=== PATIENT | female | born 1950 | race Caucasian/White ===

== ENCOUNTER → 2016-10-18 | Outpatient (CLI) | payer BC ==
[~2016-10-18] MED LIST: MULT-506 PO
--- NOTE | 2016-10-19 09:07 | MAMMOGRAPHY REPORT ---
BILATERAL DIGITAL SCREENING MAMMOGRAM WITH CAD: 10/18/2016 CLINICAL HISTORY: Routine screening. Patient has no complaints. TECHNIQUE: Current study was also evaluated with a Computer Aided Detection (CAD) system. Bilateral CC and MLO views were obtained. COMPARISON: Comparison is made to exams dated: 04/27/2015 mammogram, 11/26/2013 mammogram, 10/29/2012 m ammogram, 10/26/2011 mammogram, 10/27/2010 mammogram, and 10/27/2010 ultrasound - [facility]. BREAST COMPOSITION: The tissue of both breasts is almost entirely fatty. FINDINGS: No suspicious masses, calcifications, or areas of architectural distortion are noted in ei ther breast. There has been no significant interval change compared to prior exams. IMPRESSION: ACR BI-RADS CATEGORY 1: NEGATIVE There is no mammographic evidence of malignancy. A 1 year screening mammogram is recommended. The pa tient will receive written notification of the results. Approximately 10% of breast cancers are not detected with mammography. A negative mammographic report should not delay biopsy if a clinically suggestive mass is present. Karlee Lozano M.D. ah/:10/18/2016 15:44:50 Dispatcher Service Chief: Francia Lundberg, [facility] letter sent: Normal 1/2 BI-RADS Code: ACR BI-RADS Category 1: Negative
== END | disposition home or self-care (01) ==
LOC: C.MAMM 14:10
PROVIDERS: ATTEND Family Medicine
DX: Z12.31 Encounter for screening mammogram for malignant neoplasm of breast (principal)

== ENCOUNTER 2022-04-20 09:34 | Inpatient (IN) ==
[2022-04-20] MEDS ORDERED: ONDANSETRON INJ 2 MG/ML 2 ML VIAL IV STA (09:56)
[2022-04-20] MEDS ORDERED: MoRPHine SULFATE 4 MG/ML 1 ML CARP\\VIAL IV STA (09:56)
--- NOTE | 2022-04-20 09:58 | Emergency Department Note ---
Impression & Plan Trimalleolar fracture of left ankle, Fall, HTN (hypertension), Acute ankle pain ED Provider Note NAME: RAFAEL ANAYA AGE: 71 SEX: F : 1950 ARRIVES VIA: Ambulance INFORMANT: Patient, ED PROVIDER(S): Arturo Bob MD Chief Complaint: Fall, ankle pain HPI: Patient presents for the patient sustained a fall with associated ankle pain that occurred just prior to arrival. The patient states that she slipped on some ice and inverted her left ankle. The patient denies any head strike or additional trauma. Patient denies any chest pain shortness of breath nausea or vomiting. Patient does complain of ankle that is sharp and localized to the left ankle. The patient has followed with prior orthopedics in the past but this has been in [place]. Patient denies any head strike or LOC. The patient does not take any blood thinning medications. The patient denies any additional symptoms. The patient does not take blood thinners and has no numbness tingling or focal weakness. Patient does have decreased range of motion secondary to pain. No pain medication given prior to arrival. MDM: Patient was seen due to concern for fall and ankle fracture. The patient did have skin tenting so the decision was made to emergently reduce the patient's likely ankle fracture dislocation. This is likely unstable as this would seem to recur with regard to the dislocation even after reduction. Splint was applied which did help maintain the patient's inline and does not appear to be overtly dislocated. Patient does not have a palpable pulse and I did attempt to Doppler this as well was unable to have an obvious pulse I did immediately consult with orthopedics. I did speak with Travis Laboy PA-C as well as Dr. Stearns. The patient did have improvement with her pain status post reduction. The patient's ankle was maintained with a gel splint at this time. Blood work was obtained along with ankle x-rays. The patient was ordered for morphine and 4 of Zofran. Blood work shows normal white count H&H and platelet count. Kidney function is unremarkable. Patient's plain films do show that the patient is still dislocated. Orthopedics did attempt to reduce this but was unable to do so so decision was made to sedate the patient or help facilitate the reduction patient would eventually be taken to the OR. The reduction was considered emergent given the patient's unstable fracture and dislocation. There is also concern for tenting of the skin per Ortho. Satisfactory reduction per Ortho. I did speak the on-call medicine service 1 JOSE LUIS Conley and the patient was admitted by Dr. Linares. ROS: See HPI for pertinent positives and negatives. A total of 10 systems were reviewed and otherwise negative. Past medical history: See below Surgical history: See below Social history: See below Physical Exam: GENERAL: NAD, wearing a mask, non-toxic. EYE EXAM: Normal conjunctiva. PERRL, no anisocoria and EOM's grossly intact w/o pain. NECK: Supple, no nuchal rigidity, no adenopathy, non-tender. No signs of meningismus. FROM of the neck with good chin to chest and neck extension. No stridor. LUNGS: Clear to auscultation. Normal chest wall mechanics. HEART: NSR, no MRG. ABDOMEN: Abdomen soft, non-tender, normo-active bowel sounds, no masses, no rebound or guarding. BACK: No CVA TTP. SKIN: No rashes and no bruising. UPPER EXTREMITIES: Upper extremities are grossly normal. No TTP or obvious deformity. LOWER EXTREMITIES: Obvious deformity of the left ankle with skin tenting over the medial malleolus, left ankle everted. Sensate and does move toes. No obvious DP pulse. NEURO EXAM: A&O x3, cranial nerves II-XII grossly intact, normal speech, moves all 4 extremities. Differential diagnoses: Fracture, subluxation, dislocation, contusion, ligamentous injury, neurovascular, compartment syndrome, rhabdomyolysis, as well as other pathologies. Course: Patient was seen and evaluated the bedside. Full history physical exam was performed. EKG interpreted by me A paced rhythm, rate of 60 normal intervals normal axis T wave version lead III noncontiguous leads Imaging Studies: See Below Cardiac monitoring: An order was placed for continuous cardiac monitoring. The monitor shows a rate of 65 with slight rhythm. Procedures: Left ankle fracture dislocation reduction procedure performed by Dr. Bob Indication: Fracture dislocation Verbal consent obtained. Risks and benefits were explained with the usual customary discussion. A time out was taken. Sensate to tibialis DP tibialis and SP nerves but no obvious DP pulse, is able to move the toes. The left ankle was reduced but quickly fell out of place likely indicative of an unstable ankle and possible trimalleolar fracture. This was attempted a second time with a more stable reduction but the patient may still be subluxed or dislocated but does have improved positioning and pain. Patient is sensate to tibialis DP and SP nerves but no obvious DP pulse. The patient is able to move the toes. The patient had significant pain relief and tolerated the procedure well. Procedural Sedation performed by Dr. Bob Indication left ankle fracture dislocation Total time: 15 minutes. Written consent was obtained after the risks and benefits were explained to the patient as well as the patient's , including, but not limited to aspiration, allergic reaction, breathing difficulties, cardiac complications, vomiting, pain, event recall, bleeding, and/or infection. Pre-sedation examination and paperwork completed. The patient was on 100% oxygen via NRB prior to the procedure. Continous end tidal CO2 monitoring, pulse oximetry, and cardiac monitoring were utilized. Suction, airway equipment, medications, respiratory equipment, and appropriate personnel were prepared prior to the initiation of the procedure. A time out was taken. Sedation was achieved utilizing 20 mg of propofol. After I observed the patient had reached the appropriate level of sedation the main procedure was performed without complication. Sedation was discontinued and the monitoring continued. The patient recovered quickly from the effects of the medication without complication or adverse event. Past Med/Surg History Medical History Bakers cyst History of COVID-19 History of RSV infection HLD (hyperlipidemia) HTN (hypertension) Hypothyroidism Prediabetes SSS (sick sinus syndrome) Stage 3b chronic kidney disease (CKD) Surgical History H/O total hysterectomy Status post biventricular pacemaker Family History Other Diabetes Dyslipidemia Heart disease Hypertension Social History Smoking Status: Never smoker Tobacco Type: Cigarettes Hx Alcohol Use: No Hx Substance Use: No Preferred Language: Norwegian marital status: Current Living Situation: Spouse Feels Safe at Home: Yes Allergies Allergies Allergy/AdvReac Type Severity Reaction Status Date / Time cephalexin [From Keflex] Allergy Hives Verified 04/20/22 11:44 Penicillins Allergy hives Verified 04/20/22 11:43 Home Meds Home Medications Medication Instructions Recorded Confirmed acetaminophen 500 mg tablet 1,000 mg PO Q8 PRN Pain 04/20/22 04/20/22 (Tylenol Extra Strength) albuterol sulfate 90 mcg/actuation 2 puff inhalation Q4 PRN Shortness 04/20/22 04/20/22 aerosol inhaler Of Breath Or Wheezing aspirin 81 mg tablet,delayed 81 mg PO DAILY 04/20/22 04/20/22 release atorvastatin 10 mg tablet 10 mg PO QAM 04/20/22 04/20/22 fluticasone furoate 100 1 inh inhalation DAILY 04/20/22 04/20/22 mcg/actuation blister powder for inhalation (Arnuity Ellipta) furosemide 20 mg tablet 20 mg PO Q OTHER DAY 04/20/22 04/20/22 gabapentin 100 mg capsule 100 mg PO HS 04/20/22 04/20/22 levothyroxine 50 mcg tablet 50 mcg PO DAILY 04/20/22 04/20/22 loratadine 10 mg tablet (Claritin) 10 mg PO DAILY 04/20/22 04/20/22 losartan 100 mg tablet 100 mg PO DAILY 04/20/22 04/20/22 multivitamin 1 tab PO DAILY 04/20/22 04/20/22 promethazine-DM 6.25 mg-15 mg/5 mL 5 ml PO DIRECTED PRN Cough 04/20/22 04/20/22 oral syrup Results & Data (ED) Vital Signs Vital Signs - 24 hr 04/20/22 09:53 04/20/22 09:53 04/20/22 10:28 Temperature 36.8 C Temperature Source Oral Pulse Rate 62 Pulse Rate [Apical] 62 86 Pulse Rate from SpO2 Sensor Pulse Rhythm [Apical] Pulse Strength [Apical] Respiratory Rate 18 18 20 Respiratory Effort / Characteristics Respiratory Depth Respiratory Pattern Blood Pressure 153/85 H Blood Pressure [Left Arm] 153/85 H 170/72 H Blood Pressure Mean 107 Blood Pressure Mean [Left Arm] 107 104 Blood Pressure Position [Left Arm] Lying Pulse Oximetry 100 100 96 Oxygen Delivery Method Room Air Sepsis Recent Fever Within 48 Hours No Sepsis New/Unexplained Change in Mental Status No Sepsis Action Taken by Nursing No Action Required End-Tidal CO2 04/20/22 12:40 04/20/22 11:48 04/20/22 11:50 Temperature 36.4 C L Temperature Source Oral Pulse Rate 66 Pulse Rate [Apical] 61 Pulse Rate from SpO2 Sensor 65 Pulse Rhythm [Apical] Regular Pulse Strength [Apical] Normal Respiratory Rate 16 11 L Respiratory Effort / Characteristics Non-Labored Spontaneous Respiratory Depth Normal Respiratory Pattern Regular Blood Pressure 137/64 Blood Pressure [Left Arm] 118/63 Blood Pressure Mean 88 Blood Pressure Mean [Left Arm] 81 Blood Pressure Position [Left Arm] Sitting Pulse Oximetry 94 99 Oxygen Delivery Method Room Air Sepsis Recent Fever Within 48 Hours Sepsis New/Unexplained Change in Mental Status Sepsis Action Taken by Nursing End-Tidal CO2 35 04/20/22 11:50 04/20/22 11:55 04/20/22 11:55 Temperature Temperature Source Pulse Rate 63 65 Pulse Rate [Apical] Pulse Rate from SpO2 Sensor 63 64 Pulse Rhythm [Apical] Pulse Strength [Apical] Respiratory Rate 10 L 13 Respiratory Effort / Characteristics Respiratory Depth Respiratory Pattern Blood Pressure 131/77 Blood Pressure [Left Arm] Blood Pressure Mean 95 Blood Pressure Mean [Left Arm] Blood Pressure Position [Left Arm] Pulse Oximetry 99 100 Oxygen Delivery Method Sepsis Recent Fever Within 48 Hours Sepsis New/Unexplained Change in Mental Status Sepsis Action Taken by Nursing End-Tidal CO2 34 34 04/20/22 12:00 04/20/22 12:00 04/20/22 12:05 Temperature Temperature Source Pulse Rate 65 64 Pulse Rate [Apical] Pulse Rate from SpO2 Sensor 64 64 Pulse Rhythm [Apical] Pulse Strength [Apical] Respiratory Rate 11 L 13 Respiratory Effort / Characteristics Respiratory Depth Respiratory Pattern Blood Pressure 140/76 Blood Pressure [Left Arm] Blood Pressure Mean 97 Blood Pressure Mean [Left Arm] Blood Pressure Position [Left Arm] Pulse Oximetry 100 95 Oxygen Delivery Method Sepsis Recent Fever Within 48 Hours Sepsis New/Unexplained Change in Mental Status Sepsis Action Taken by Nursing End-Tidal CO2 24 35 04/20/22 12:05 04/20/22 12:10 04/20/22 12:10 Temperature Temperature Source Pulse Rate 65 Pulse Rate [Apical] Pulse Rate from SpO2 Sensor 65 Pulse Rhythm [Apical] Pulse Strength [Apical] Respiratory Rate 13 Respiratory Effort / Characteristics Respiratory Depth Respiratory Pattern Blood Pressure 127/66 128/67 Blood Pressure [Left Arm] Blood Pressure Mean 86 87 Blood Pressure Mean [Left Arm] Blood Pressure Position [Left Arm] Pulse Oximetry 95 Oxygen Delivery Method Sepsis Recent Fever Within 48 Hours Sepsis New/Unexplained Change in Mental Status Sepsis Action Taken by Nursing End-Tidal CO2 35 04/20/22 12:15 04/20/22 12:15 04/20/22 12:20 Temperature Temperature Source Pulse Rate 63 64 Pulse Rate [Apical] Pulse Rate from SpO2 Sensor 62 Pulse Rhythm [Apical] Pulse Strength [Apical] Respiratory Rate 10 L 7 L Respiratory Effort / Characteristics Respiratory Depth Respiratory Pattern Blood Pressure 127/67 Blood Pressure [Left Arm] Blood Pressure Mean 87 Blood Pressure Mean [Left Arm] Blood Pressure Position [Left Arm] Pulse Oximetry 92 Oxygen Delivery Method Sepsis Recent Fever Within 48 Hours Sepsis New/Unexplained Change in Mental Status Sepsis Action Taken by Nursing End-Tidal CO2 36 35 04/20/22 12:30 04/20/22 12:40 04/20/22 12:55 Temperature Temperature Source Pulse Rate Pulse Rate [Apical] 60 Pulse Rate from SpO2 Sensor Pulse Rhythm [Apical] Regular Pulse Strength [Apical] Normal Respiratory Rate 0 L 0 L 16 Respiratory Effort / Characteristics Non-Labored Spontaneous Respiratory Depth Normal Respiratory Pattern Regular Blood Pressure Blood Pressure [Left Arm] 117/58 L Blood Pressure Mean Blood Pressure Mean [Left Arm] 77 Blood Pressure Position [Left Arm] Semi-fowlers Pulse Oximetry 95 Oxygen Delivery Method Room Air Sepsis Recent Fever Within 48 Hours Sepsis New/Unexplained Change in Mental Status Sepsis Action Taken by Nursing End-Tidal CO2 04/20/22 13:05 Temperature Temperature Source Pulse Rate Pulse Rate [Apical] 60 Pulse Rate from SpO2 Sensor Pulse Rhythm [Apical] Regular Pulse Strength [Apical] Normal Respiratory Rate 16 Respiratory Effort / Characteristics Non-Labored Spontaneous Respiratory Depth Normal Respiratory Pattern Regular Blood Pressure Blood Pressure [Left Arm] 127/65 Blood Pressure Mean Blood Pressure Mean [Left Arm] 85 Blood Pressure Position [Left Arm] Semi-fowlers Pulse Oximetry 95 Oxygen Delivery Method Room Air Sepsis Recent Fever Within 48 Hours Sepsis New/Unexplained Change in Mental Status Sepsis Action Taken by Nursing End-Tidal CO2 Home Medications Current Medication List: was personally reviewed by me Laboratory Data Attestation: I reviewed the patient's lab results. Result diagrams: 04/20/22 10:07 04/20/22 10:07 Lab Results 04/20/22 04/20/22 04/20/22 Range/Units 10:07 10:07 10:09 WBC 5.39 (4.8-10.8) K/ul RBC 4.39 (3.93-5.22) M/uL Hgb 13.3 (12.0-16.0) g/dl Hct 41.9 (34.1-44.9) % MCV 95.4 (80.0-100.0) fL MCH 30.3 (25.0-34.0) pg MCHC 31.7 L (32.0-36.0) g/dL RDW Std Deviation 52.6 H (36.4-46.3) fL RDW Coeff of Mino 15.0 H (11.5-14.5) % Plt Count 160 (130-400) K/uL MPV 9.2 L (9.4-12.3) fL Immature Gran % (Auto) 0.2 % Neut % (Auto) 70.6 % Lymph % (Auto) 18.6 % Nobles % (Auto) 7.8 % Eos % (Auto) 2.4 % Baso % (Auto) 0.4 % Neut # (Auto) 3.81 (1.4-6.5) K/uL Lymph # (Auto) 1.00 L (1.2-3.4) K/uL Nobles # (Auto) 0.42 (0.24-0.82) K/uL Eos # (Auto) 0.13 (0-0.50) K/uL Baso # (Auto) 0.02 (0-0.2) K/uL Immature Gran # (Auto) 0.01 (0.00-0.02) K/uL Sodium 142 (136-145) mmol/L Potassium 4.0 (3.5-5.1) mmol/L Chloride 109 H (98-107) mmol/L Carbon Dioxide 26 (21-32) mmol/L Anion Gap 7 (3-11) BUN 25 H (6-23) mg/dl Creatinine 1.08 (0.6-1.2) mg/dl Est Cr Clr Drug Dosing 58.3 ml/min Est GFR ( Amer) 60.2 ml/min Est GFR (Non-Af Amer) 52.0 ml/min BUN/Creatinine Ratio 23.1 H (10-20) Glucose 112 H (70-99(Fasting)) mg/dl Calcium 9.5 (8.5-10.1) mg/dl Total Bilirubin 0.4 (0.2-1.0) mg/dl AST 25 (13-39) U/L ALT 21 (7-52) U/L Alkaline Phosphatase 74 (34-104) U/L Total Protein 7.4 (6.0-8.3) gm/dl Albumin 4.4 (3.4-5.0) gm/dl Globulin 3.0 (2.5-4.0) gm/dl Albumin/Globulin Ratio 1.5 (0.9-2) Urine Color Urine Appearance (Clear) Urine pH (4.5-7.5) Ur Specific [place] (1.000-1.030) Urine Protein (Negative) Urine Glucose (UA) (Negative) Urine Ketones (Negative) Urine Blood (Negative) Urine Nitrite (Negative) Urine Bilirubin (Negative) Urine Urobilinogen (Negative) Ur Leukocyte Esterase (Negative) SARS-CoV-2, RNA, NAAT NEGATIVE (NEGATIVE) 04/20/22 Range/Units 10:23 WBC (4.8-10.8) K/ul RBC (3.93-5.22) M/uL Hgb (12.0-16.0) g/dl Hct (34.1-44.9) % MCV (80.0-100.0) fL MCH (25.0-34.0) pg MCHC (32.0-36.0) g/dL RDW Std Deviation (36.4-46.3) fL RDW Coeff of Mino (11.5-14.5) % Plt Count (130-400) K/uL MPV (9.4-12.3) fL Immature Gran % (Auto) % Neut % (Auto) % Lymph % (Auto) % Nobles % (Auto) % Eos % (Auto) % Baso % (Auto) % Neut # (Auto) (1.4-6.5) K/uL Lymph # (Auto) (1.2-3.4) K/uL [place]les # (Auto) (0.24-0.82) K/uL Eos # (Auto) (0-0.50) K/uL Baso # (Auto) (0-0.2) K/uL Immature Gran # (Auto) (0.00-0.02) K/uL Sodium (136-145) mmol/L Potassium (3.5-5.1) mmol/L Chloride (98-107) mmol/L Carbon Dioxide (21-32) mmol/L Anion Gap (3-11) BUN (6-23) mg/dl Creatinine (0.6-1.2) mg/dl Est Cr Clr Drug Dosing ml/min Est GFR ( Amer) ml/min Est GFR (Non-Af Amer) ml/min BUN/Creatinine Ratio (10-20) Glucose (70-99(Fasting)) mg/dl Calcium (8.5-10.1) mg/dl Total Bilirubin (0.2-1.0) mg/dl AST (13-39) U/L ALT (7-52) U/L Alkaline Phosphatase (34-104) U/L Total Protein (6.0-8.3) gm/dl Albumin (3.4-5.0) gm/dl Globulin (2.5-4.0) gm/dl Albumin/Globulin Ratio (0.9-2) Urine Color Yellow Urine Appearance Clear (Clear) Urine pH 5.0 (4.5-7.5) Ur Specific [place] 1.007 (1.000-1.030) Urine Protein Negative (Negative) Urine Glucose (UA) Negative (Negative) Urine Ketones Negative (Negative) Urine Blood Negative (Negative) Urine Nitrite Negative (Negative) Urine Bilirubin Negative (Negative) Urine Urobilinogen Negative (Negative) Ur Leukocyte Esterase Negative (Negative) SARS-CoV-2, RNA, NAAT (NEGATIVE) Administered Medications Discontinued Medications Hydromorphone HCl (Hydromorphone Inj 0.5 Mg/0.5 Ml Syr) 0.5 mg IV NOW STA Stop: 04/20/22 11:11 Last Admin: 04/20/22 11:17 Dose: 0.5 mg Documented By: MODESTO Hydromorphone HCl (Hydromorphone Inj 0.5 Mg/0.5 Ml Syr) 0.5 mg IV NOW STA Stop: 04/20/22 11:51 Last Admin: 04/20/22 11:15 Dose: 0.5 mg Documented By: MODESTO Cefazolin Sodium (Ancef 2000mg) 2,000 mg in 15 mls @ 3.75 mls/min IV PREOP ONE; Protocol Stop: 04/20/22 12:46 Last Admin: 04/20/22 13:12 Dose: 3.75 mls/min Documented By: SEAN Morphine Sulfate (Morphine Sulfate 4 Mg/Ml 1 Ml Carp\Vial) 4 mg IV NOW STA Stop: 04/20/22 09:57 Last Admin: 04/20/22 10:12 Dose: 4 mg Documented By: STEPHANIE Ondansetron HCl (Ondansetron Inj 2 Mg/Ml 2 Ml Vial) 4 mg IV NOW STA Stop: 04/20/22 09:57 Last Admin: 04/20/22 10:12 Dose: 4 mg Documented By: STEPHANIE Propofol (Propofol Iv Emulsion 10 Mg/Ml 20 Ml Vial) Confirm Administered Dose 200 mg IV .STK-MED ONE Stop: 04/20/22 11:39 Last Admin: 04/20/22 12:05 Dose: Not Given Documented By: RAFAEL Propofol (Propofol Iv Emulsion 10 Mg/Ml 20 Ml Vial) 50 mg IV NOW STA Stop: 04/20/22 11:39 Last Admin: 04/20/22 11:47 Dose: 20 mg Documented By: RAFAEL Co-signed By: SOCORRO Imaging Data Radiologist's Impression: Ankle X-Ray 04/20/22 09:56 XR ankle LT min 3V routine HISTORY: 71 years-old Female likely trimall s/p reduction in splint acute left ankle pain status post trauma COMPARISON: None TECHNIQUE: 3 views of the left ankle FINDINGS: Acute medial malleolar fracture demonstrates 8 mm lateral displacement. Acute obliquely oriented longitudinal fracture of the distal fibular metadiaphysis demonstrates posterior displacement measuring up to approximately 1.3 cm. Probable acute fracture of the posterior malleolus. Dislocation of the tibiotalar joint. The distal tibia is displaced 2.3 cm in relation to the talar dome. Moderate soft tissue swelling. Vascular calcifications. Demineralized appearance of the bones with at least mild osteoarthritis. IMPRESSION: Acute fracture dislocation of the ankle as above. ACT 112: Negative or not required by law. The above report was generated using voice recognition software. It may contain grammatical, syntax or spelling errors. Electronically signed by: Bruce Shea M.D. 04/20/2022 10:49 AM Ankle X-Ray 04/20/22 10:42 XR ankle LT min 3V routine CLINICAL HISTORY: post reduction w/ Bader COMPARISON: Left ankle radiographs April 20, 2022 at 10:21 AM. FINDINGS: Overlying cast is noted. Tibiotalar dislocation is again noted. Alignment of the distal left tibial and fibular fractures is similar to prior exam. Findings detailed is decreased given overlying cast. IMPRESSION: No significant change in alignment of the left ankle f racture/dislocation. ACT 112: Negative or not required by law. Electronically signed by: Charan Cruz M.D. 04/20/2022 11:18 AM Ankle X-Ray 04/20/22 11:16 XR ankle LT 2V CLINICAL HISTORY: Postreduction. Left ankle fracture. COMPARISON STUDY: Left ankle 04/20/2022. FINDINGS: Overlying splint material obscures fine bony detail. There is again noted a displaced trimalleolar left ankle fracture. There is slight progression of the lateral displacement/dislocation compared to the prior examination. The medial malleolus fracture demonstrates up to 10 mm of lateral displacement, previously measuring 7 mm. There is 12 mm of lateral displacement of the talus in relation to the sternal tibia. Diffuse soft tissue swelling. IMPRESSION: Slight progression of the lateral displacement/dislocation of the left ankle trimalleolar fracture compared to the prior study. ACT 112: Negative or not required by law. Electronically signed by: Man Alvarenga M.D. 04/20/2022 12:02 PM Chest X-Ray 04/20/22 11:58 XR chest 1V portable HISTORY: Left ankle fracture. preop COMPARISON: None. FINDINGS: There are low lung volumes. A few small left basilar linear densities favor subsegmental atelectasis or scarring. Otherwise, the lungs are clear. No evidence for pulmonary edema. There is a small hiatus hernia. Prior cholecystectomy. Left-sided dual-chamber pacemaker. No pleural effusions. No pneumothorax. IMPRESSION: A few small left basilar linear densities favoring subsegmental atelectasis or scarring. Otherwise, no acute process within the chest. ACT 112: Negative or not required by law. Electronically signed by: Man Alvarenga M.D. 04/20/2022 12:34 PM Discharge Plan Visit Data Chief Complaint: Fall Stated Complaint: FALL, ANKLE FX ED Provider: Arturo Bob Discharge Problem: Trimalleolar fracture of left ankle, Fall, HTN (hypertension), Acute ankle pain Patient Disposition: Admitted As Inpatient Discharge Instructions Interventions: ED Discharge Assessment Last Done: 12/22/22 12:49 : Trimalleolar fracture of left ankle Qualifiers: Encounter type: initial encounter Fracture type: closed Qualified Code(s): S82.852A - Displaced trimalleolar fracture of left lower leg, initial encounter for closed fracture Fall Qualifiers: Encounter type: initial encounter Qualified Code(s): W19.XXXA - Unspecified fall, initial encounter HTN (hypertension) Qualifiers: Hypertension type: unspecified Qualified Code(s): I10 - Essential (primary) hypertension Acute ankle pain Qualifiers: Laterality: left Qualified Code(s): M25.572 - Pain in left ankle and joints of left foot
[2022-04-20 10:21] LABS: Basophils # (auto) 0.02 K/uL (0-0.2); Basophils % (auto) 0.4 %; Eosinophils # (auto) 0.13 K/uL (0-0.50); Eosinophils % (auto) 2.4 %; Hematocrit (blood only) 41.9 % (34.1-44.9); Hemoglobin 13.3 g/dl (12.0-16.0); Immature Granulocytes # (auto) 0.01 K/uL (0.00-0.02); Immature Granulocytes % (auto) 0.2 %; Lymphocytes % (auto) 18.6 %; Mean Corpuscular Hemoglobin 30.3 pg (25.0-34.0); Mean Corpuscular Hgb Conc 31.7 g/dL (32.0-36.0); Mean Corpuscular Volume 95.4 fL (80.0-100.0); Mean Platelet Volume 9.2 fL (9.4-12.3); Monocytes # (auto) 0.42 K/uL (0.24-0.82); Monocytes % (auto) 7.8 %; Neutrophils # (auto) 3.81 K/uL (1.4-6.5); Neutrophils % (auto) 70.6 %; Platelet Count 160 K/uL (130-400); RDW Standard Deviation 52.6 fL (36.4-46.3); Red Blood Count 4.39 M/uL (3.93-5.22); White Blood Count 5.39 K/ul (4.8-10.8)
[2022-04-20 10:35] LABS: Appearance Urine Clear (Clear); Bilirubin Urine Negative (Negative); Blood Urine Negative (Negative); Color Urine Yellow; Glucose Urine UA Negative (Negative); Ketones Urine Negative (Negative); Leukocyte Esterase Urine Negative (Negative); Nitrite Urine Negative (Negative); Protein Urine Negative (Negative); Specific Gravity Urine 1.007 (1.000-1.030); Urobilinogen Urine Negative (Negative)
--- NOTE | 2022-04-20 10:51 | XRay Report ---
XR ankle LT min 3V routine HISTORY: 71 years-old Female likely trimall s/p reduction in splint acute left ankle pain status pos t trauma COMPARISON: None TECHNIQUE: 3 views of the left ankle FINDINGS: Acute medial malleolar fracture demonstrates 8 mm lateral displacement. Acute obliquely oriented long itudinal fracture of the distal fibular metadiaphysis demonstrates posterior displacement measuring u p to approximately 1.3 cm. Probable acute fracture of the posterior malleolus. Dislocation of the tib iotalar joint. The distal tibia is displaced 2.3 cm in relation to the talar dome. Moderate soft tiss ue swelling. Vascular calcifications. Demineralized appearance of the bones with at least mild osteoa rthritis. IMPRESSION: Acute fracture dislocation of the ankle as above. ACT 112: Negative or not required by law. The above report was generated using voice recognition software. It may contain grammatical, syntax o r spelling errors. Electronically signed by: Bruce Shea M.D. 04/20/2022 10:49 AM
[2022-04-20 10:54] LABS: Albumin Globulin Ratio 1.5 (0.9-2); Albumin Level 4.4 gm/dl (3.4-5.0); BUN Creatinine Ratio 23.1 (10-20); Bilirubin,Total 0.4 mg/dl (0.2-1.0); Calcium 9.5 mg/dl (8.5-10.1); Creatinine Clr Calc Pharmacy 58.3 ml/min; Est GFR (African American) 60.2 ml/min; Total Protein 7.4 gm/dl (6.0-8.3)
[2022-04-20] MEDS ORDERED: HYDROmorphone INJ 0.5 MG/0.5 ML SYR IV STA ×2 (11:10→11:50)
--- NOTE | 2022-04-20 11:21 | XRay Report ---
XR ankle LT min 3V routine CLINICAL HISTORY: post reduction w/ Bader COMPARISON: Left ankle radiographs April 20, 2022 at 10:21 AM. FINDINGS: Overlying cast is noted. Tibiotalar dislocation is again noted. Alignment of the distal le ft tibial and fibular fractures is similar to prior exam. Findings detailed is decreased given overly ing cast. IMPRESSION: No significant change in alignment of the left ankle fracture/dislocation. ACT 112: Negative or not required by law. Electronically signed by: Charan Cruz M.D. 04/20/2022 11:18 AM
--- NOTE | 2022-04-20 11:23 | History & Physical Report ---
Date of Service April 20, 2022 Assessment & Plan (1) Fall: (2) Trimalleolar fracture of left ankle: Plan: - Admit to med surg with tele - Pt is currently sedated, ankle set was attempted in the ER but not obtainable so going to the OR emergently this afternoon. - Ortho consulted - Preop Ancef - Pain control with Tylenol [id number], oxycodone 5 mg as needed, IV morphine for breakthrough pain - Bowel regimen with MiraLAX and Dulcolax ordered - PT/OT consults - CXR reviewed and clear (3) SSS (sick sinus syndrome): (4) Status post biventricular pacemaker: (5) HTN (hypertension): (6) HLD (hyperlipidemia): Plan: - Continue on baby aspirin, hold Lasix and losartan for now with BP being 118/63 - Can resume per the day team - Cont statin therapy HS - EKG reviewed showing atrial paced rhythm, no acute changes (7) Prediabetes: Plan: - Check A1C with am labs, glucose is 112 on admission, monitor and order ISS if needed. Pt is not on any home medications - Diet and exercise to be encouraged post-op (8) Stage 3b chronic kidney disease (CKD): Plan: - Holding losartan and lasix as above, Cr. is currently 1.08, BUN 25 - Follow with am labs (9) Hypothyroidism: Plan: - Cont levothyroxine BB DVT ppx: - teds, scds CODE: Full code Dispo: From home, likely to remain in the hospital x 1-2 days Discussion was held with the patient's , Lito at bedside, all his que stions and concerns were addressed. Plan for OR today. History of Present Illness Chief Complaint: Fall Primary Care Provider: Miguel Miranda MD This is a 71 yo F with PMhx of SSS status post pacemaker insertion in October 2020, HTN, HLD, diastolic dysfunction, prediabetes, CKD stage IIIb, and hypothyroidism who slipped and fell on ice earlier today. Patient's is at bedside . This morning his stepped outside of her vehicle onto some ice, slipped and fell on top of her ankle. This was immediately followed by severe pain. The patient is currently sedated and unconscious therefore unable to obtain history or ROS from her. Patient has underwent attempt to reduce/that the ankle however was unable to be done in the ER. ER physician had difficulty finding palpable pulse in the left foot, bedside Doppler could not identify dorsalis pedis pulse, and orthopedic consult was placed urgently and they are planning to take the patient to the OR this afternoon. Allergies Allergy/AdvReac Type Severity Reaction Status Date / Time cephalexin [From Keflex] Allergy Hives Verified 04/20/22 11:44 Penicillins Allergy hives Verified 04/20/22 11:43 Home Medications Medication Instructions Recorded Confirmed Type acetaminophen 500 mg tablet 1,000 mg PO Q8 PRN Pain 04/20/22 04/20/22 History (Tylenol Extra Strength) albuterol sulfate 90 mcg/actuation 2 puff inhalation Q4 PRN Shortness 04/20/22 04/20/22 History aerosol inhaler Of Breath Or Wheezing aspirin 81 mg tablet,delayed 81 mg PO DAILY 04/20/22 04/20/22 History release atorvastatin 10 mg tablet 10 mg PO QAM 04/20/22 04/20/22 History fluticasone furoate 100 1 inh inhalation DAILY 04/20/22 04/20/22 History mcg/actuation blister powder for inhalation (Arnuity Ellipta) furosemide 20 mg tablet 20 mg PO Q OTHER DAY 04/20/22 04/20/22 History gabapentin 100 mg capsule 100 mg PO HS 04/20/22 04/20/22 History levothyroxine 50 mcg tablet 50 mcg PO DAILY 04/20/22 04/20/22 History loratadine 10 mg tablet (Claritin) 10 mg PO DAILY 04/20/22 04/20/22 History losartan 100 mg tablet 100 mg PO DAILY 04/20/22 04/20/22 History multivitamin 1 tab PO DAILY 04/20/22 04/20/22 History promethazine-DM 6.25 mg-15 mg/5 mL 5 ml PO DIRECTED PRN Cough 04/20/22 04/20/22 History oral syrup Past Med/Surg History Medical History Bakers cyst History of COVID-19 History of RSV infection HLD (hyperlipidemia) HTN (hypertension) Hypothyroidism Prediabetes SSS (sick sinus syndrome) Stage 3b chronic kidney disease (CKD) Surgical History H/O total hysterectomy Status post biventricular pacemaker Family History Other Diabetes Dyslipidemia Heart disease Hypertension Social History Smoking Status: Never smoker Tobacco Type: Cigarettes Hx Alcohol Use: No Hx Substance Use: No Preferred Language: Guyanese Communication Ability: Effective Senior Government Program Analyst Required: No Beliefs That Will Affect Care: None marital status: Current Living Situation: Spouse Other Information That Helps Us Care for You: No Feels Safe at Home: Yes Safety Concerns: Feels Safe At This Time Review of Systems Review of Systems: Unobtainable due to cognitive status (Sedated for procedure) Physical Exam Physical Exam: General: + sedated, no apparent distress, + Obese with BMI of 43.1 Head: Normocephalic, atraumatic ENT: PERRL, EOMI, no pharyngeal exudate, mucous membranes moist Chest: Clear to auscultation, on room air with nasal oximetry monitor in place, no adventitious breath sounds Cardiac: Regular rate and rhythm, no murmur, no JVD, good capillary refill Abdominal: NABS x 4 quadrants, soft, nondistended, nontender to palpation, no rebound or guarding Extremities: Left leg set and wrapped, otherwise normal inspection, no peripheral edema or erythema, calfs nontender to palpation Psych: Normal mood and affect Neuro: AAO x 3, strength intact bilaterally and rated 5/5, no motor deficits, speech is clear, no peripheral sensory deficits Results & Data Results & Data ([facility]) Vital Signs (Past 12 Hours) Vital Signs Temp Pulse Pulse Resp BP BP Pulse Ox 04/20/22 10:28 86 20 170/72 H 96 04/20/22 09:53 62 18 153/85 H 100 04/20/22 09:53 36.8 C 62 18 153/85 H 100 O2 Del Method 04/20/22 10:28 Room Air 04/20/22 09:53 04/20/22 09:53 Laboratory Results 04/20/22 04/20/22 04/20/22 10:23 10:09 10:07 WBC RBC Hgb Hct MCV MCH MCHC RDW Std Deviation RDW Coeff of Mino Plt Count MPV Immature Gran % (Auto) Neut % (Auto) Lymph % (Auto) [place] % (Auto) Eos % (Auto) Baso % (Auto) Neut # (Auto) Lymph # (Auto) [place] # (Auto) Eos # (Auto) Baso # (Auto) Immature Gran # (Auto) Sodium 142 Potassium 4.0 Chloride 109 H Carbon Dioxide 26 Anion Gap 7 BUN 25 H Creatinine 1.08 Est Cr Clr Drug Dosing 58.3 Est GFR ( Amer) 60.2 Est GFR (Non-Af Amer) 52.0 BUN/Creatinine Ratio 23.1 H Glucose 112 H Calcium 9.5 Total Bilirubin 0.4 AST 25 ALT 21 Alkaline Phosphatase 74 Total Protein 7.4 Albumin 4.4 Globulin 3.0 Albumin/Globulin Ratio 1.5 Urine Color Yellow Urine Appearance Clear Urine pH 5.0 Ur Specific [place] 1.007 Urine Protein Negative Urine Glucose (UA) Negative Urine Ketones Negative Urine Blood Negative Urine Nitrite Negative Urine Bilirubin Negative Urine Urobilinogen Negative Ur Leukocyte Esterase Negative SARS-CoV-2, RNA, NAAT NEGATIVE 04/20/22 10:07 WBC 5.39 RBC 4.39 Hgb 13.3 Hct 41.9 MCV 95.4 MCH 30.3 MCHC 31.7 L RDW Std Deviation 52.6 H RDW Coeff of Mino 15.0 H Plt Count 160 MPV 9.2 L Immature Gran % (Auto) 0.2 Neut % (Auto) 70.6 Lymph % (Auto) 18.6 [place] % (Auto) 7.8 Eos % (Auto) 2.4 Baso % (Auto) 0.4 Neut # (Auto) 3.81 Lymph # (Auto) 1.00 L [place] # (Auto) 0.42 Eos # (Auto) 0.13 Baso # (Auto) 0.02 Immature Gran # (Auto) 0.01 Sodium Potassium Chloride Carbon Dioxide Anion Gap BUN Creatinine Est Cr Clr Drug Dosing Est GFR ( Amer) Est GFR (Non-Af Amer) BUN/Creatinine Ratio Glucose Calcium Total Bilirubin AST ALT Alkaline Phosphatase Total Protein Albumin Globulin Albumin/Globulin Ratio Urine Color Urine Appearance Urine pH Ur Specific [place] Urine Protein Urine Glucose (UA) Urine Ketones Urine Blood Urine Nitrite Urine Bilirubin Urine Urobilinogen Ur Leukocyte Esterase SARS-CoV-2, RNA, NAAT Diagnostic Findings Ankle X-Ray 04/20/22 09:56 XR ankle LT min 3V routine HISTORY: 71 years-old Female likely trimall s/p reduction in splint acute left ankle pain status post trauma COMPARISON: None TECHNIQUE: 3 views of the left ankle FINDINGS: Acute medial malleolar fracture demonstrates 8 mm lateral displacement. Acute obliquely oriented longitudinal fracture of the distal fibular metadiaphysis demonstrates posterior displacement measuring up to approximately 1.3 cm. Probable acute fracture of the posterior malleolus. Dislocation of the tibiotalar joint. The distal tibia is displaced 2.3 cm in relation to the talar dome. Moderate soft tissue swelling. Vascular calcifications. Demineralized appearance of the bones with at least mild osteoarthritis. IMPRESSION: Acute fracture dislocation of the ankle as above. ACT 112: Negative or not required by law. The above report was generated using voice recognition software. It may contain grammatical, syntax or spelling errors. Electronically signed by: Bruce Shea M.D. 04/20/2022 10:49 AM Ankle X-Ray 04/20/22 10:42 XR ankle LT min 3V routine CLINICAL HISTORY: post reduction w/ Bader COMPARISON: Left ankle radiographs April 20, 2022 at 10:21 AM. FINDINGS: Overlying cast is noted. Tibiotalar dislocation is again noted. Alignment of the distal left tibial and fibular fractures is similar to prior exam. Findings detailed is decreased given overlying cast. IMPRESSION: No significant change in alignment of the left ankle fracture/dislocation. ACT 112: Negative or not required by law. Electronically signed by: Charan Cruz M.D. 04/20/2022 11:18 AM Ankle X-Ray 04/20/22 11:16 XR ankle LT 2V CLINICAL HISTORY: Postreduction. Left ankle fracture. COMPARISON STUDY: Left ankle 04/20/2022. FINDINGS: Overlying splint material obscures fine bony detail. There is again noted a displaced trimalleolar left ankle fracture. There is slight progression of the lateral displacement/dislocation compared to the prior examination. The medial malleolus fracture demonstrates up to 10 mm of lateral displacement, previously measuring 7 mm. There is 12 mm of lateral displacement of the talus in relation to the sternal tibia. Diffuse soft tissue swelling. IMPRESSION: Slight progression of the lateral displacement/dislocation of the left ankle trimalleolar fracture compared to the prior study. ACT 112: Negative or not required by law. Electronically signed by: Man Alvarenga M.D. 04/20/2022 12:02 PM Chest X-Ray 04/20/22 11:58 XR chest 1V portable HISTORY: Left ankle fracture. preop COMPARISON: None. FINDINGS: There are low lung volumes. A few small left basilar linear densities favor subsegmental atelectasis or scarring. Otherwise, the lungs are clear. No evidence for pulmonary edema. There is a small hiatus hernia. Prior ivon cystectomy. Left-sided dual-chamber pacemaker. No pleural effusions. No pneumothorax. IMPRESSION: A few small left basilar linear densities favoring subsegmental atelectasis or scarring. Otherwise, no acute process within the chest. ACT 112: Negative or not required by law. Electronically signed by: Man Alvarenga M.D. 04/20/2022 12:34 PM ECG Additional Comments: 20-APR-2022 10:16:27 [facility]-EDSTAT ROUTINE RETRIEVAL Poor data quality, interpretation may be adversely affected Atrial-paced rhythm Low voltage QRS Nonspecific T wave abnormality Abnormal ECG No previous ECGs available 25mm/s10mm/[id number]: [id number] by: REFERRED SELF Unconfirmed Vent. rate 60 BPM TX interval 144 ms QRS duration 72 ms QT/QTc 416/416 ms Code Status & VTE Plan Code Status Full code - discussed with Lito at bedside Supervising Physician Co-Signing Physician Notes I have seen and examined the patient and have discussed the case with the david lieberman above. I agree with the assessment and plan as stated. The patient is a 71-year-old female who sustained a traumatic ankle fracture and is status post ORIF this afternoon. She is recovering from surgery well but has a persistent cough from a recent RSV infection. She is requesting Robitussin with codeine. She is also requesting that we hold her Lasix diuretic while she is in inpatient . Pain appears well managed and there is no other chest pain or trouble breathing. She is hungry and requesting food. Physical exam is unremarkable aside from left lower extremity with ice and surgical dressing in place. Lab work medication and imaging reviewed. Agree with plan as listed above. Continue with postoperative orthopedic instructions. Disposition per orthopedics. DO Vijay
[2022-04-20] MEDS ORDERED: PROPOFOL IV EMULSION 10 MG/ML 20 ML VIAL IV STA (11:38)
[2022-04-20] MEDS ORDERED: PROPOFOL IV EMULSION 10 MG/ML 20 ML VIAL IV ONE ×2 (11:38→12:05)
[2022-04-20] MEDS ORDERED: ROPIVACAINE 0.5% 5 MG/ML 30 ML VIAL ONE (12:03)
--- NOTE | 2022-04-20 12:04 | XRay Report ---
XR ankle LT 2V CLINICAL HISTORY: Postreduction. Left ankle fracture. COMPARISON STUDY: Left ankle 04/20/2022. FINDINGS: Overlying splint material obscures fine bony detail. There is again noted a displaced trima lleolar left ankle fracture. There is slight progression of the lateral displacement/dislocation comp ared to the prior examination. The medial malleolus fracture demonstrates up to 10 mm of lateral disp lacement, previously measuring 7 mm. There is 12 mm of lateral displacement of the talus in relation to the sternal tibia. Diffuse soft tissue swelling. IMPRESSION: Slight progression of the lateral displacement/dislocation of the left ankle trimalleola r fracture compared to the prior study. ACT 112: Negative or not required by law. Electronically signed by: Man Alvarenga M.D. 04/20/2022 12:02 PM
[2022-04-20] MEDS ORDERED: DEXAMETHASONE SOD INJ 4 MG/ML VIAL ONE (12:05)
[2022-04-20] MEDS ORDERED: MIDAZOLAM HCL 1 MG/ML 2ML VIAL ONE (12:05)
[2022-04-20] MEDS ORDERED: ONDANSETRON INJ 2 MG/ML 2 ML VIAL ONE (12:05)
[2022-04-20] MEDS ORDERED: LIDOCAINE 2% MPF LOCAL 5 ML VIAL INFIL ONE (12:05)
[2022-04-20] MEDS ORDERED: fentaNYL citrate 100 MCG/2 ML VIAL ONE (12:05)
--- NOTE | 2022-04-20 12:09 | Orthopedic Consultation ---
Date of Consultation April 20, 2022 Assessment & Plan (1) Trimalleolar fracture of left ankle: Patient was educated regarding today's findings. She did receive morphine 4 mg IV and Zofran 4 mg IV with some reduction in her pain. This was exacerbated by an attempt at reduction. Patient was unable to relax and contracted her lower extremity musculature. This caused redislocation of the unstable ankle fracture. She was unable to adequately relax to allow for further reduction. Patient was given Dilaudid 0.5 mg IV. Again an adequate reduction was achieved, however the patient began flexing her leg and caused loss of reduction. She was given another 0.5 mg of Dilaudid IV but no adequate reduction was able to be obtained. Because of this, conscious sedation was necessary for adequate reduction and splinting, due to concern for threatening skin and preventing open fracture. Conscious sedation was performed by Dr. Bartholomew in the ED. See Dr. Stearns's op report for details regarding closed reduction. She tolerated well. Patient was taken to the OR urgently for ORIF of her left ankle. Informed written consent has already been obtained. Patient will remain NPO. Medical clearance has been requested from the hospitalist team. Preoperative lab work, EKG, and chest x-ray have been obtained. Present on Admission?: Yes Supervising Physician Co-Signing Physician Notes I, Dr. Stearns, saw and examined the patient and discussed the management with my PA. I reviewed my PAs note and agree with the documented findings and the plan of care I developed. Risks and benefits of surgery and non-op treatment discussed. Patient agreed to proceed with surgery, informed consent signed and LLE initialled. Patient has been NPO. Ancef on-call to OR. History of Present Illness Reason for Consultation: Left ankle fracture/dislocation Requesting Physician: Maki Stearns MD Attending Physician: ze barthloomew History of Present Illness This 71-year-old female presented to the ED by ambulance, for evaluation of left ankle pain. Patient states she was getting out of her vehicle this morning and stepped on some ice. She slipped, and fell directly on top of her ankle. There was immediate onset of pain. She felt a break. There is an obvious deformity. No prior history of significant ankle injury. She denies any knee or hip pain. There was no loss of consciousness. She denies any numbness or tingling. ER physician had difficulty finding palpable pulses in the left foot. There was concern because bedside Doppler evaluation did not identify a dorsalis pedis pu lse. Consultation was placed for urgent orthopedic management. Allergies Allergy/AdvReac Type Severity Reaction Status Date / Time cephalexin [From Keflex] Allergy Hives Verified 04/20/22 11:44 Penicillins Allergy hives Verified 04/20/22 11:43 Home Medications Medication Instructions Recorded Confirmed Type acetaminophen 500 mg tablet 1,000 mg PO Q8 PRN Pain 04/20/22 04/20/22 History (Tylenol Extra Strength) albuterol sulfate 90 mcg/actuation 2 puff inhalation Q4 PRN Shortness 04/20/22 04/20/22 History aerosol inhaler Of Breath Or Wheezing aspirin 81 mg tablet,delayed 81 mg PO DAILY 04/20/22 04/20/22 History release atorvastatin 10 mg tablet 10 mg PO QAM 04/20/22 04/20/22 History fluticasone furoate 100 1 inh inhalation DAILY 04/20/22 04/20/22 History mcg/actuation blister powder for inhalation (Arnuity Ellipta) furosemide 20 mg tablet 20 mg PO Q OTHER DAY 04/20/22 04/20/22 History gabapentin 100 mg capsule 100 mg PO HS 04/20/22 04/20/22 History levothyroxine 50 mcg tablet 50 mcg PO DAILY 04/20/22 04/20/22 History loratadine 10 mg tablet (Claritin) 10 mg PO DAILY 04/20/22 04/20/22 History losartan 100 mg tablet 100 mg PO DAILY 04/20/22 04/20/22 History multivitamin 1 tab PO DAILY 04/20/22 04/20/22 History promethazine-DM 6.25 mg-15 mg/5 mL 5 ml PO DIRECTED PRN Cough 04/20/22 04/20/22 History oral syrup Patient History Medical History Bakers cyst History of COVID-19 History of RSV infection HLD (hyperlipidemia) HTN (hypertension) Hypothyroidism Prediabetes SSS (sick sinus syndrome) Stage 3b chronic kidney disease (CKD) Surgical History H/O total hysterectomy Status post biventricular pacemaker Family History Other Diabetes Dyslipidemia Heart disease Hypertension Social History Smoking Status: Never smoker Tobacco Type: Cigarettes Hx Alcohol Use: No Hx Substance Use: No Preferred Language: Citizen Of [place] marital status: Current Living Situation: Spouse Feels Safe at Home: Yes Review of Systems Review of Systems: All systems reviewed & are unremarkable except as noted in HPI & below Physical Exam Physical Exam: General: Well-developed, well-nourished, elderly white female, in obvious discomfort. Laying on the bed. Alert and oriented. Skin: Warm and dry with fair turgor. No rashes. Patient does have an abrasion present on the medial malleolus of the left ankle. There is no puncture deneen or open wound. Obvious deformity to the left ankle. Skin was threatened with loss of reduction. Musculoskeletal: Patient has no discomfort with palpation over the right leg. She has no pain with palpation over the left hip or left knee. She does have an obvious deformity to the left ankle. There is exquisite pain with any attempt at motion or reduction. She does have intact motor function of her toes. Neurologic: Gross sensation is intact across the left foot by soft touch. Posterior tibialis pulses 1+ by palpation. I was unable to find either dorsalis pedis pulse, on either foot. I did attempt identification using the bedside Doppler but was unable to find either dorsalis pedis pulse. Capillary refill is equal for each of the toes on both feet. Results & Data ([facility]) Vital Signs (Past 12 Hours) Vital Signs Temp Pulse Pulse Resp BP BP Pulse Ox 04/20/22 10:28 86 20 170/72 H 96 04/20/22 09:53 62 18 153/85 H 100 04/20/22 09:53 36.8 C 62 18 153/85 H 100 O2 Del Method 04/20/22 10:28 Room Air 04/20/22 09:53 04/20/22 09:53 Laboratory Results 04/20/22 04/20/22 04/20/22 Range/Units 10:23 10:09 10:07 WBC (4.8-10.8) K/ul RBC (3.93-5.22) M/uL Hgb (12.0-16.0) g/dl Hct (34.1-44.9) % MCV (80.0-100.0) fL MCH (25.0-34.0) pg MCHC (32.0-36.0) g/dL RDW Std Deviation (36.4-46.3) fL RDW Coeff of [place] (11.5-14.5) % Plt Count (130-400) K/uL MPV (9.4-12.3) fL Immature Gran % (Auto) % Neut % (Auto) % Lymph % (Auto) % [place] % (Auto) % Eos % (Auto) % Baso % (Auto) % Neut # (Auto) (1.4-6.5) K/uL Lymph # (Auto) (1.2-3.4) K/uL [place] # (Auto) (0.24-0.82) K/uL Eos # (Auto) (0-0.50) K/uL Baso # (Auto) (0-0.2) K/uL Immature Gran # (Auto) (0.00-0.02) K/uL Sodium 142 (136-145) mmol/L Potassium 4.0 (3.5-5.1) mmol/L Chloride 109 H (98-107) mmol/L Carbon Dioxide 26 (21-32) mmol/L Anion Gap 7 (3-11) BUN 25 H (6-23) mg/dl Creatinine 1.08 (0.6-1.2) mg/dl Est Cr Clr Drug Dosing 58.3 ml/min Est GFR ( Amer) 60.2 ml/min Est GFR (Non-Af Amer) 52.0 ml/min BUN/Creatinine Ratio 23.1 H (10-20) Glucose 112 H (70-99(Fasting)) mg/dl Calcium 9.5 (8.5-10.1) mg/dl Total Bilirubin 0.4 (0.2-1.0) mg/dl AST 25 (13-39) U/L ALT 21 (7-52) U/L Alkaline Phosphatase 74 (34-104) U/L Total Protein 7.4 (6.0-8.3) gm/dl Albumin 4.4 (3.4-5.0) gm/dl Globulin 3.0 (2.5-4.0) gm/dl Albumin/Globulin Ratio 1.5 (0.9-2) Urine Color Yellow Urine Appearance Clear (Clear) Urine pH 5.0 (4.5-7.5) Ur Specific [place] 1.007 (1.000-1.030) Urine Protein Negative (Negative) Urine Glucose (UA) Negative (Negative) Urine Ketones Negative (Negative) Urine Blood Negative (Negative) Urine Nitrite Negative (Negative) Urine Bilirubin Negative (Negative) Urine Urobilinogen Negative (Negative) Ur Leukocyte Esterase Negative (Negative) SARS-CoV-2, RNA, NAAT NEGATIVE (NEGATIVE) 04/20/22 Range/Units 10:07 WBC 5.39 (4.8-10.8) K/ul RBC 4.39 (3.93-5.22) M/uL Hgb 13.3 (12.0-16.0) g/dl Hct 41.9 (34.1-44.9) % MCV 95.4 (80.0-100.0) fL MCH 30.3 (25.0-34.0) pg MCHC 31.7 L (32.0-36.0) g/dL RDW Std Deviation 52.6 H (36.4-46.3) fL RDW Coeff of M[place] 15.0 H (11.5-14.5) % Plt Count 160 (130-400) K/uL MPV 9.2 L (9.4-12.3) fL Immature Gran % (Auto) 0.2 % Neut % (Auto) 70.6 % Lymph % (Auto) 18.6 % [place] % (Auto) 7.8 % Eos % (Auto) 2.4 % Baso % (Auto) 0.4 % Neut # (Auto) 3.81 (1.4-6.5) K/uL Lymph # (Auto) 1.00 L (1.2-3.4) K/uL [place] # (Auto) 0.42 (0.24-0.82) K/uL Eos # (Auto) 0.13 (0-0.50) K/uL Baso # (Auto) 0.02 (0-0.2) K/uL Immature Gran # (Auto) 0.01 (0.00-0.02) K/uL Sodium (136-145) mmol/L Potassium (3.5-5.1) mmol/L Chloride (98-107) mmol/L Carbon Dioxide (21-32) mmol/L Anion Gap (3-11) BUN (6-23) mg/dl Creatinine (0.6-1.2) mg/dl Est Cr Clr Drug Dosing ml/min Est GFR ( Amer) ml/min Est GFR (Non-Af Amer) ml/min BUN/Creatinine Ratio (10-20) Glucose (70-99(Fasting)) mg/dl Calcium (8.5-10.1) mg/dl Total Bilirubin (0.2-1.0) mg/dl AST (13-39) U/L ALT (7-52) U/L Alkaline Phosphatase (34-104) U/L Total Protein (6.0-8.3) gm/dl Albumin (3.4-5.0) gm/dl Globulin (2.5-4.0) gm/dl Albumin/Globulin Ratio (0.9-2) Urine Color Urine Appearance (Clear) Urine pH (4.5-7.5) Ur Specific [place] (1.000-1.030) Urine Protein (Negative) Urine Glucose (UA) (Negative) Urine Ketones (Negative) Urine Blood (Negative) Urine Nitrite (Negative) Urine Bilirubin (Negative) Urine Urobilinogen (Negative) Ur Leukocyte Esterase (Negative) SARS-CoV-2, RNA, NAAT (NEGATIVE) Diagnostic Findings Radiographic imaging obtained today of the left ankle shows a dislocated trimalleolar fracture. Postreduction films show adequate alignment after splinting. These were reviewed with Dr. Stearns.
--- NOTE | 2022-04-20 12:17 | Operative Report ---
Post Operative Report Pre & Post Diagnosis Operation Date: 04/20/22 12:10 Pre-Op Dx: Left ankle fracture dislocation, unstable Post-Op Dx: Left ankle fracture dislocation, unstable I identified the patient and participated in the time-out.: Yes Procedure Operation Date: 04/20/22 12:10 Closed reduction left ankle fracture dislocation. Surgeon Anjum Stearns MD Pepper Cutter Nimo Laboy PA-C (No fellow avail) Estimated Blood Loss 0 Findings Consistent with Post-Op Diagnosis Specimens n/a Complications none Indications The patient is a 71 year old female who injured their left ankle slipping on the ice and has a fracture dislocation. Recommended Closed reduction as the skin is threatened prior to proceeding to surgery. This required conscious sedation as her muscles contracted forcibly, not allowing the reduction to be maintained. Description of Procedure After performing a time-out and identifying the left lower leg as the correct leg for closed reduction and the patient had been given some IV pain medicine and an attempted close reduction was performed with traction on the great toe and the fracture was reduced. A AO splint that was well-padded was placed. Postreduction radiographs were obtained which showed loss of reduction. Additional pain medicine was given and a second attempt was performed, again the fracture was felt to reduce and while attempting to place the posterior splint, her muscles went into spasm and the reduction was lost and it was unable to be corrected. At that point a recommendation was made for conscious sedation as the fracture need to be reduced as the skin was threatened. After performing a time-out and identifying the left lower leg as the correct leg for closed reduction and after appropriate conscious sedation. A reduction maneuver was performed by pulling traction on the great toe and the fracture reduced. Cast padding was placed over top and a posterior splint was held in place while a lateral x-ray was obtained to ensure maintenance of the reduction. A U splint was then placed to further secure the reduction. Final x-rays were obtained showing much improved alignment and the talus under the tibia. She tolerated rated the procedure well. Due to the unstable nature of the fractures and the threatening skin, was elected to take her to the operating room to further stabilize the fractures. I attest to the content of the Intraoperative Record and any orders documented therein. Any exceptions are noted below.
[2022-04-20] MEDS ORDERED: BUPIVACAINE 0.5 % 5 MG/1 ML MPF 30ML VIAL ONE (12:28)
[2022-04-20] MEDS ORDERED: LIDOCAINE 1%/EPINEPHRINE 1:100,000 50 ML VIAL ONE ×2 (12:28→12:34)
--- NOTE | 2022-04-20 12:37 | XRay Report ---
XR chest 1V portable HISTORY: Left ankle fracture. preop COMPARISON: None. FINDINGS: There are low lung volumes. A few small left basilar linear densities favor subsegmental at electasis or scarring. Otherwise, the lungs are clear. No evidence for pulmonary edema. There is a sm all hiatus hernia. Prior cholecystectomy. Left-sided dual-chamber pacemaker. No pleural effusions. No pneumothorax. IMPRESSION: A few small left basilar linear densities favoring subsegmental atelectasis or scarring. Otherwise, n o acute process within the chest. ACT 112: Negative or not required by law. Electronically signed by: Man Alvarenga M.D. 04/20/2022 12:34 PM
[2022-04-20] MEDS ORDERED: ceFAZolin 2,000 MG/15 ML IV PUSH IV ONE (12:42)
[2022-04-20] MEDS ORDERED: ceFAZolin 2000MG 2,000 MG/15 ML SYR IV ONE (12:43)
--- NOTE | 2022-04-20 12:50 | Anesthesiology Consultation ---
Date of Service April 20, 2022 Assessment & Plan ASA ASA3 Proposed Anesthesia Anesthesia Type: General Risk / Benefits Reviewed With: PT / POA / Parent / Guardian, Accepts Plan and Informed Consent Obtained Additional Comments: pt fracture is very unstable. dr stearns did not want a preop block because of difficulty getting to the sites of block. will consider post op block if patien t needs it. pt unstable fracture requires surgery at 7 hours post eating History Surgery Operation Date: 04/20/22 12:10 Proposed Procedures p Left Open Reduction Internal Fixation Ankle - Anjum Celio Stearns MD Height/Weight Height: 5 ft 3 in Weight: 111.9 kg Allergies Allergy/AdvReac Type Severity Reaction Status Date / Time cephalexin [From Keflex] Allergy Hives Verified 04/20/22 11:44 Penicillins Allergy hives Verified 04/20/22 11:43 Medications Home Medications Medication Instructions Recorded Confirmed Last Taken acetaminophen 500 mg tablet 1,000 mg PO Q8 PRN Pain 04/20/22 04/20/22 04/19/22 (Tylenol Extra Strength) albuterol sulfate 90 mcg/actuation 2 puff inhalation Q4 PRN Shortness 04/20/22 04/20/22 Unknown aerosol inhaler Of Breath Or Wheezing aspirin 81 mg tablet,delayed 81 mg PO DAILY 04/20/22 04/20/22 04/19/22 release atorvastatin 10 mg tablet 10 mg PO QAM 04/20/22 04/20/22 04/19/22 fluticasone furoate 100 1 inh inhalation DAILY 04/20/22 04/20/22 04/19/22 mcg/actuation blister powder for inhalation (Arnuity Ellipta) furosemide 20 mg tablet 20 mg PO Q OTHER DAY 04/20/22 04/20/22 Unknown gabapentin 100 mg capsule 100 mg PO HS 04/20/22 04/20/22 04/19/22 levothyroxine 50 mcg tablet 50 mcg PO DAILY 04/20/22 04/20/22 04/20/22 loratadine 10 mg tablet (Claritin) 10 mg PO DAILY 04/20/22 04/20/22 04/19/22 losartan 100 mg tablet 100 mg PO DAILY 04/20/22 04/20/22 04/19/22 multivitamin 1 tab PO DAILY 04/20/22 04/20/22 04/19/22 promethazine-DM 6.25 mg-15 mg/5 mL 5 ml PO DIRECTED PRN Cough 04/20/22 04/20/22 Unknown oral syrup NPO Date Last Intake of Fluids: 04/20/22 Time Last Intake of Fluids: 06:00 Date Last Intake of Solids: 04/20/22 Time Last Intake of Solids: 06:00 Past Medical History Medical History Bakers cyst History of COVID-19 History of RSV infection HLD (hyperlipidemia) HTN (hypertension) Hypothyroidism Prediabetes SSS (sick sinus syndrome) Stage 3b chronic kidney disease (CKD) Exercise / Class Metabolic Activity II 4-5 Yardwork/Stairs/Walk up hill Past Family History Family History Other Diabetes Dyslipidemia Heart disease Hypertension Past Surgical History Surgical History H/O total hysterectomy Status post biventricular pacemaker Past Anesthesia History No Hx of Anesthesia Complications and No Family Hx of Anesthesia Complications History of PONV No Hx of PONV and No Hx of Motion Sickness Social History Smoking Status: Never smoker Hx Alcohol Use: No Hx Substance Use: No Review of Systems denies fever/cough/ colds/ chest pain/ SOB/ IRMA denies IRMA Physical Exam Vital Signs Last Vital Signs Temp 36.4 C L 04/20/22 12:40 Pulse 61 04/20/22 12:40 Resp 16 04/20/22 12:40 BP 118/63 04/20/22 12:40 Pulse Ox 94 04/20/22 12:40 O2 Del Method 04/20/22 12:40 ENMT Mouth: no TMJ abnormality and no dentition abnormality Thyromental Distance: > or= 3.5 Finger Breadths Mallampati Class: II Neck neck extension not limited Respiratory normal respiratory effort; no respiratory distress Auscultation: lungs clear to auscultation bilaterally Cardiovascular Rate/Rhythm: regular rate and regular rhythm Neurologic moves all extremities Psychiatric Orientation: alert and oriented x 3 Testing Laboratory Results 04/20/22 10:07 04/20/22 10:07 Urine Color Yellow 04/20/22 10:23 Urine Appearance Clear (Clear) 04/20/22 10:23 Urine pH 5.0 (4.5-7.5) 04/20/22 10:23 Ur Specific [place] 1.007 (1.000-1.030) 04/20/22 10:23 Urine Protein Negative (Negative) 04/20/22 10:23 Urine Glucose (UA) Negative (Negative) 04/20/22 10:23 Urine Ketones Negative (Negative) 04/20/22 10:23 Urine Nitrite Negative (Negative) 04/20/22 10:23 Ur Leukocyte Esterase Negative (Negative) 04/20/22 10:23
[2022-04-20] MEDS ORDERED: ePHEDrine sulfate 50 MG/ML AMP IV PRN (13:33)
[2022-04-20] MEDS ORDERED: fentaNYL citrate 100 MCG/2 ML VIAL IV PRN (13:33)
[2022-04-20] MEDS ORDERED: HYDROmorphone INJ 2 MG/ML SYR/VIAL IV PRN (13:33)
[2022-04-20] MEDS ORDERED: ONDANSETRON INJ 2 MG/ML 2 ML VIAL IV PRN ×2 (13:33→18:07)
[2022-04-20] MEDS ORDERED: ATROPINE SULFATE 0.1 MG/ML 10ML SYR IV PRN (13:33)
[2022-04-20] MEDS ORDERED: ROCURONIUM BROMIDE 10 MG/ML 5 ML VIAL IV ONE (14:52)
[2022-04-20] MEDS ORDERED: PHENYLEPHRINE HCL 10 MG/ML VIAL ONE (14:52)
[2022-04-20] MEDS ORDERED: PHENYLEPHRINE 100MCG/ML 5ML SYR ONE (14:52)
--- NOTE | 2022-04-20 15:02 | Emergency Department Note ---
Pre Sedation Assessment Vital Signs Temp Pulse Pulse Resp BP BP Pulse Ox 04/20/22 13:05 60 16 127/65 95 04/20/22 12:55 60 16 117/58 L 95 04/20/22 12:40 0 L 04/20/22 12:30 0 L 04/20/22 12:20 64 7 L 04/20/22 12:15 127/67 04/20/22 12:15 63 10 L 92 04/20/22 12:10 65 13 95 04/20/22 12:10 128/67 04/20/22 12:05 127/66 04/20/22 12:05 64 13 95 04/20/22 12:00 65 11 L 100 04/20/22 12:00 140/76 04/20/22 11:55 65 13 100 04/20/22 11:55 131/77 04/20/22 11:50 63 10 L 99 04/20/22 11:50 137/64 04/20/22 11:48 66 11 L 99 04/20/22 12:40 36.4 C L 61 16 118/63 94 04/20/22 10:28 86 20 170/72 H 96 04/20/22 09:53 62 18 153/85 H 100 04/20/22 09:53 36.8 C 62 18 153/85 H 100 O2 Del Method 04/20/22 13:05 Room Air 04/20/22 12:55 Room Air 04/20/22 12:40 04/20/22 12:30 04/20/22 12:20 04/20/22 12:15 04/20/22 12:15 04/20/22 12:10 04/20/22 12:10 04/20/22 12:05 04/20/22 12:05 04/20/22 12:00 04/20/22 12:00 04/20/22 11:55 04/20/22 11:55 04/20/22 11:50 04/20/22 11:50 04/20/22 11:48 04/20/22 12:40 Room Air 04/20/22 10:28 Room Air 04/20/22 09:53 04/20/22 09:53 Cardiovascular RRR, no murmur, no edema + regular rate + capillary refill normal Respiratory normal respiratory effort, lungs clear to auscultation + respiratory effort normal + clear to auscultation bilaterally Pre-Sedation Airway Assessment Smoking Status: Never smoker Short, Thick Neck: Yes Thyromental Distance: > or= 3.5 Finger Breadths Oral Cavity: + WNL Mallampati Class: II ASA: ASA2 NPO Status Date of Last Intake of Fluids: 04/19/22 Date of Last Intake of Solid Food: 04/19/22 Procedure Planning Contraindications for Sedation: none Current Medications Reviewed: Yes Notes The planned sedation has been discussed with the patient. Informed Consent was obtained. I have identified the patient, determined the appropriateness of sedation and have assessed the patient immediately prior to the procedure. All medicine(s) and interventions are by my order. Sedation considered emergent : Trimalleolar fracture of left ankle Qualifiers: Encounter type: initial encounter Fracture type: closed Qualified Code(s): S82.852A - Displaced trimalleolar fracture of left lower leg, initial encounter for closed fracture Fall Qualifiers: Encounter type: initial encounter Qualified Code(s): W19.XXXA - Unspecified fall, initial encounter HTN (hypertension) Qualifiers: Hypertension type: unspecified Qualified Code(s): I10 - Essential (primary) hypertension Acute ankle pain Qualifiers: Laterality: left Qualified Code(s): M25.572 - Pain in left ankle and joints of left foot
--- NOTE | 2022-04-20 15:03 | Emergency Department Note ---
Post Sedation Assessment Vital Signs Temp Pulse Pulse Resp BP BP Pulse Ox 04/20/22 13:05 60 16 127/65 95 04/20/22 12:55 60 16 117/58 L 95 04/20/22 12:40 0 L 04/20/22 12:30 0 L 04/20/22 12:20 64 7 L 04/20/22 12:15 127/67 04/20/22 12:15 63 10 L 92 04/20/22 12:10 65 13 95 04/20/22 12:10 128/67 04/20/22 12:05 127/66 04/20/22 12:05 64 13 95 04/20/22 12:00 65 11 L 100 04/20/22 12:00 140/76 04/20/22 11:55 65 13 100 04/20/22 11:55 131/77 04/20/22 11:50 63 10 L 99 04/20/22 11:50 137/64 04/20/22 11:48 66 11 L 99 04/20/22 12:40 36.4 C L 61 16 118/63 94 04/20/22 10:28 86 20 170/72 H 96 04/20/22 09:53 62 18 153/85 H 100 04/20/22 09:53 36.8 C 62 18 153/85 H 100 O2 Del Method 04/20/22 13:05 Room Air 04/20/22 12:55 Room Air 04/20/22 12:40 04/20/22 12:30 04/20/22 12:20 04/20/22 12:15 04/20/22 12:15 04/20/22 12:10 04/20/22 12:10 04/20/22 12:05 04/20/22 12:05 04/20/22 12:00 04/20/22 12:00 04/20/22 11:55 04/20/22 11:55 04/20/22 11:50 04/20/22 11:50 04/20/22 11:48 04/20/22 12:40 Room Air 04/20/22 10:28 Room Air 04/20/22 09:53 04/20/22 09:53 Recovery Score Activity: Moves 4 extremities Respiration: Deep Breath/Cough Circulation: +/-20% PreAnes Value Consciousness: Arouseable (by name) Oxygen Saturation: O2 needed for >90% Post Anesthesia Score: 8 Discharge Sedation Level of Care: Fast Track Phase II Unexpected Event: None Post Sedation Plan On clinical assessment, the patient appears to have tolerated the sedation without complications. Patient is recovering as anticipated. Patient will continue to be monitored by nursing and may be discharged when sedation discharge criteria are met per below protocol. Upon Completions of procedure up to 15 minutes continue every 5 minute vital signs and the P.A.R. score; then discharge to a Phase I or Fast Track to Phase II per the following guidelines: * Discharge Patient to appropriate Phase II area if PAR is 8 or greater or return to pre- procedure baseline. The post - procedure orders will be as directed. * If PAR score is less than 8 or not return to pre-procedure baseline then patient will follow Phase I monitoring till PAR is reached for Phase II. The Phase I may be done in procedure room or may call to secure a Phase I area. * If naloxone or flumazenil are used for reversal, hold in Phase I for continued monitoring from when last reversal dose was given for a minimum of 60 minutes or longer pending the nurse and/or physician discretion of patient condition before discharge to Phase II. Please call the Sedation Physician to re-evaluate and complete post-note for discharge to Phase II area. Do NOT discharge from procedure sedation or Phase 1 until post- sedation evaluation note is complete by procedure /sedation MD Sedation Discharge Instructions to be given to the patient at discharge to home. Sedation Data Time Out Team Members Agree on the Following: Correct Patient, Correct Procedure, Correct Site-Side and Allergies Verified Team Agrees: Yes Time Out Performed Time: 11:47 Sedation Times Sedation Start Date: 04/20/22 Sedation Start Time: 11:47 Sedation End Date: 04/20/22 Sedation End Time: 12:03 Total Sedation Time: 16 Procedure Times Procedure Start Time:: 11:48 Procedure End Time: 11:52 : Trimalleolar fracture of left ankle Qualifiers: Encounter type: initial encounter Fracture type: closed Qualified Code(s): S82.852A - Displaced trimalleolar fracture of left lower leg, initial encounter for closed fracture Fall Qualifiers: Encounter type: initial encounter Qualified Code(s): W19.XXXA - Unspecified fall, initial encounter HTN (hypertension) Qualifiers: Hypertension type: unspecified Qualified Code(s): I10 - Essential (primary) hypertension Acute ankle pain Qualifiers: Laterality: left Qualified Code(s): M25.572 - Pain in left ankle and joints of left foot
--- NOTE | 2022-04-20 15:41 | Fluoroscopy Report ---
FL ankle LT min 3V RTN CLINICAL HISTORY: LT ANKLE ORIF COMPARISON STUDY: Left ankle radiographs performed earlier today. FLUOROSCOPY TIME: 29.3 seconds. FLUOROSCOPIC IMAGES: 3 FINDINGS: Fluoroscopy was provided during open reduction and internal fixation of the fracture/disloc ation of the left ankle. Fracture alignment appears anatomic. Plate and screw fixation of the fibular fracture is noted with screw fixation of the medial malleolar fracture. There are no unexpected radi opaque foreign bodies. IMPRESSION: Fluoroscopy provided during left ankle open reduction and internal fixation. ACT 112: Negative or not required by law. Electronically signed by: Charan Crzu M.D. 04/20/2022 3:40 PM
--- NOTE | 2022-04-20 15:53 | Post Operative Brief Note ---
Immediate Post Op Note v1 Date of Surgery April 20, 2022 Pre & Post Diagnosis Operation Date: 04/20/22 12:10 Pre-Op Diagnosis: Left ANKLE FX/dislocation Post-Op Diagnosis: Left Bimalleolar ANKLE FX/dislocation I identified the patient and participated in the time-out.: Yes Procedure Operation Date: 04/20/22 12:10 Actual Procedures p Left Open Reduction Internal Fixation Ankle bimalleolar fracture (Left) - Anjum Stearns MD Surgeon Anjum Stearns MD Registration Representative Tom Hoover PA-C (No fellow avail) Estimated Blood Loss 25 Findings Consistent with Post-Op Diagnosis Fluids 1400 cc Specimens Left ankle osteochondral fragment Drains Other ([place]) Anesthesia Type General
--- NOTE | 2022-04-20 15:54 | Operative Report ---
Post Operative Report Pre & Post Diagnosis Operation Date: 04/20/22 12:10 Pre-Op Diagnosis: Left ANKLE FX/dislocation Post-Op Diagnosis: Left Bimalleolar ANKLE FX/dislocation I identified the patient and participated in the time-out.: Yes Procedure Operation Date: 04/20/22 12:10 Actual Procedures p Left Open Reduction Internal Fixation Ankle bimalleolar fracture (Left) - Anjum Stearns MD Surgeon Anjum Stearns MD Delivery Engineer Tom Hoover PA-C (No fellow avail) Estimated Blood Loss 25 Findings See Below Unstable displaced, comminuted bimalleolar ankle fracture. Grade I-II [place] changes to Talus. Stable syndesmosis. Fluids 1400 cc Specimens Left ankle osteochondral fragment Drains [place] Anesthesia Type General Complications none Indications The patient is a 71 year old female who injured their left ankle slipped on the ice. The patient and his family understands the risks of surgery, which include but are not limited to: bleeding, infection, re-operation, damage to nerves and arteries, continued pain, loss of reduction, hardware failure, the need for repeat surgery, decrease level of activity, and DVT. The patient and his family understand all of these instructions and explanations, all of their questions have been satisfactorily addressed. The patient and his family have elected to proceed with surgery and the informed consent was signed. Description of Procedure IMPLANTS: 1) 7 hole, Third tubular locking plate (Synthes). 2) 3.5 mm locking screws (12 mm x 4 and 14 mm). 3) 4.0 mm x 42 mm short thread cannulated screws x2 (medial Mal). 4) 2.4 mm Lag Screw (20 mm & 24 mm) Tom Hoover PA-C is assisting with positioning, retraction, closure, and splinting due to fellow not available. PROCEDURE: The patient was taken to the Operating Room and placed in the supine position on the operating table. After general anesthetic was administered a multidisciplinary time-out was performed identifying the patient my initials on the left limb as the correct and operative limb. Prior to the incision being made, 2 grams of intravenous Ancef were given. The left leg was prepped and draped in the standard fashion. The distal fibula was marked as well as the planned incision centered about the distal fibula 10 cm in length. The planned incision laterally and medially incision were injected with a 50:50 mixture of 1% lidocaine and 0.5 % Marcaine with epi for a total of 18 cc. The planned incision was made and carried down to the fibula. The fracture site was easily identified as there was a tear in the fascia. The Superficial Peroneal nerve was identified approximately 7cm proximal to the tip of fibula and was dissected and protected throughout the case. The fracture site was debrided with copious irrigation, dental pick, and rongeur, removing any soft tissue and hematoma. Using 2 pointed reduction clamps were used to reduce the distal fibula fractures. 2 lag screw was placed in the standard fashion securing the main 2 fragments together and the anterior distal fragment to the distal fragment. The 7-hole 1/3 tubular locking plate was held in place with a Faberge and a k-wire through locking guide. A proximal non-locking screws was placed through the plate and 2 locking screws were placed in the distal holes. Locking screws were placed in the remaining 2 proximal holes. The non-locking screw was replaced with a locking screw. Next our attention was drawn to the medial malleolus. A 5 cm incision was made with a scalpel. The fracture was easily identified. The periosteum was removed from the fracture site. The fracture site was debrided with copious irrigation, dental pick, and rongeur, removing any soft tissue and hematoma. There was comminution laterally. Using a dental pick to reduce the medial malleolus 2 parallel K-wires were placed. Two 4.0 cannulated screws were placed in the standard fashion. Fluoroscopy was used throughout the case to ensure proper reduction and placement of hardware. Testing via external rotation testing and cotton testing showed the syndesmosis to be reduced and stable. The wounds were copiously irrigated. Final x-rays were obtained. The fascia over the plate and periosteum medially were closed with 0 Vicryl and the subcutaneous layer were closed with 3-0 Vicryl. The skin was closed with Mack. The sponge and needle counts were correct. The wounds were covered with Xerofaom, 4x4's, ABD's, Steril cast padding, and an AO splint was placed. The patient was awakened and taken to the recovery room in stable condition. Post-op Instructions: The patient will be admitted back to the med/surg floor on the hospitalist service. The patient will remain NWB while in the splint. Once the patient is switched to a cam boot, they will be, toe-touch weightbearing. Pain medicine prescription was given pre-operatively to be taken as needed. The patient will follow up with me in 10-14 days. I attest to the content of the Intraoperative Record and any orders documented therein. Any exceptions are noted below.
[2022-04-20] MEDS ORDERED: GLYCOPYRROLATE 0.2 MG/ML VIAL ONE (16:03)
[2022-04-20] MEDS ORDERED: NEOSTIGMINE METHYLSULFATE 1 MG/ML 10ML VIAL ONE (16:03)
--- NOTE | 2022-04-20 16:18 | Operative Report ---
Post Operative Report Pre & Post Diagnosis Operation Date: 04/20/22 12:10 Pre-Op Diagnosis: FALL, ANKLE FX Post-Op Diagnosis: FALL, ANKLE FX I identified the patient and participated in the time-out.: Yes Procedure Operation Date: 04/20/22 12:10 Actual Procedures p Left Open Reduction Internal Fixation Ankle bimalleolar (Left) - Anjum Stearns MD Surgeon Dr Anjum Stearns Accounting Lecturer Tom Hoover PA-C (No fellow avail) Estimated Blood Loss 25 Findings Consistent with Post-Op Diagnosis Specimens osteochondral fragment left ankle Description of Procedure Pt was taken to operating room, placed under general anesthesia. Pt was given 2g Ancef IV. Prepped and draped in sterile fashion. I was present during the entire case and assisted with positioning, instrumentation, closure and dressings. Please see Dr. Stearns's op report for further detail. Pt was awake and transferred to PACU in stable condition I attest to the content of the Intraoperative Record and any orders documented therein. Any exceptions are noted below.
--- NOTE | 2022-04-20 16:52 | Anesthesiology Progress Note ---
Date of Service April 20, 2022 Anesthesia Post Procedure Vital Signs Vital Signs: Temp Pulse Pulse Resp BP BP Pulse Ox 04/20/22 16:35 63 14 106/79 95 04/20/22 16:45 60 17 114/82 99 04/20/22 16:25 67 17 115/76 98 04/20/22 16:19 36 C L 70 13 94/53 L 91 04/20/22 13:05 60 16 127/65 95 04/20/22 12:55 60 16 117/58 L 95 04/20/22 12:40 0 L 04/20/22 12:30 0 L 04/20/22 12:20 64 7 L 04/20/22 12:15 127/67 04/20/22 12:15 63 10 L 92 04/20/22 12:10 65 13 95 04/20/22 12:10 128/67 04/20/22 12:05 127/66 04/20/22 12:05 64 13 95 04/20/22 12:00 65 11 L 100 04/20/22 12:00 140/76 04/20/22 11:55 65 13 100 04/20/22 11:55 131/77 04/20/22 11:50 63 10 L 99 04/20/22 11:50 137/64 04/20/22 11:48 66 11 L 99 04/20/22 12:40 36.4 C L 61 16 118/63 94 04/20/22 10:28 86 20 170/72 H 96 04/20/22 09:53 62 18 153/85 H 100 04/20/22 09:53 36.8 C 62 18 153/85 H 100 O2 Del Method O2 Flow Rate 04/20/22 16:35 Oxymask 2 04/20/22 16:45 Oxymask 2 04/20/22 16:25 Oxymask 5 04/20/22 16:19 Room Air 04/20/22 13:05 Room Air 04/20/22 12:55 Room Air 04/20/22 12:40 04/20/22 12:30 04/20/22 12:20 04/20/22 12:15 04/20/22 12:15 04/20/22 12:10 04/20/22 12:10 04/20/22 12:05 04/20/22 12:05 04/20/22 12:00 04/20/22 12:00 04/20/22 11:55 04/20/22 11:55 04/20/22 11:50 04/20/22 11:50 04/20/22 11:48 04/20/22 12:40 Room Air 04/20/22 10:28 Room Air 04/20/22 09:53 04/20/22 09:53 Transfer of Care Handoff Completed per policy Notes Mental Status: alert / awake / arousable and participated in evaluation Patient Amnestic to Procedure: Yes Nausea / Vomiting: adequately controlled Pain: adequately controlled Airway Patency, RR, SpO2: stable & adequate BP & HR: stable & adequate Hydration State: stable & adequate Anesthetic Complications: no major complications apparent and Pt Satisfied with anesthetic care
[2022-04-20] MEDS ORDERED: ALBUTEROL HFA 8 GM INHALER INH PRN (18:07)
[2022-04-20] MEDS ORDERED: MoRPHine SULFATE 4 MG/ML 1 ML CARP\\VIAL IV PRN ×2 (18:07→21:12)
[2022-04-20] MEDS ORDERED: NON-FORMULARY MEDICATION (Promethazine-Dm 6.25-15 mg/5 mL Syrup) PO PRN (18:07)
[2022-04-20] MEDS: ACETAMINOPHEN 500 MG TAB PO SCH (21:32)
[2022-04-20] MEDS: GABAPENTIN 100 MG CAP PO SCH (21:33)
[2022-04-21] MEDS: LEVOTHYROXINE SODIUM 50 MCG TABLET PO SCH (05:57)
[2022-04-21 08:13] LABS: Hematocrit (blood only) 36.8 % (34.1-44.9); Hemoglobin 12.1 g/dl (12.0-16.0); Mean Corpuscular Hemoglobin 30.8 pg (25.0-34.0); Mean Corpuscular Hgb Conc 32.9 g/dL (32.0-36.0); Mean Corpuscular Volume 93.6 fL (80.0-100.0); Platelet Count 150 K/uL (130-400); RDW Coefficient of Variation 15.1 % (11.5-14.5); RDW Standard Deviation 52.5 fL (36.4-46.3); Red Blood Count 3.93 M/uL (3.93-5.22); White Blood Count 9.08 K/ul (4.8-10.8)
[2022-04-21 08:36] LABS: BUN Creatinine Ratio 18.9 (10-20); Calcium 8.8 mg/dl (8.5-10.1); Est GFR (African American) 75.1 ml/min; Est GFR (Non-African American) 64.8 ml/min
[2022-04-21] MEDS: ACETAMINOPHEN 500 MG TAB PO SCH ×3 (08:47→20:13)
[2022-04-21] MEDS: ASPIRIN 81 MG ECTAB PO SCH (08:49)
[2022-04-21] MEDS: ATORVASTATIN 10 MG TAB PO SCH (08:49)
[2022-04-21] MEDS: bisacodyL 5 MG TABEC PO SCH (08:49)
[2022-04-21] MEDS: POLYETHYLENE (MIRALAX) 17 GM PACK PO SCH (08:50)
[2022-04-21] MEDS: MULTIVITAMIN TAB PO SCH (08:50)
[2022-04-21] MEDS: FLUTICASONE FUROATE 100MCG 14 PUFFS/INHALER INH SCH (08:50)
[2022-04-21] MEDS: LORATADINE 10 MG TAB PO SCH (08:50)
--- NOTE | 2022-04-21 12:15 | Hospitalist Progress Note ---
Date of Service April 21, 2022 Assessment & Plan (1) Fall: Plan: - sustained from fall on ice 04/20/2022 - s/p fracture of left ankle - no s/p OR with ortho 04/20/2022 - PT/OT (2) Trimalleolar fracture of left ankle: Plan: - Admit to med surg with tele - Ortho consulted - s/p OR with ortho 04/20/2022 - Preop Ancef - Pain control with Tylenol [id number], oxycodone 5 mg as needed, IV morp haja for breakthrough pain - Bowel regimen with MiraLAX and Dulcolax ordered - PT/OT consults - recommend inpatient rehab but patient would like to go home for [place] - follow up ortho (3) SSS (sick sinus syndrome): Plan: - s/p PPM 10/2020 (4) HTN (hypertension): Plan: - normotensive at this time - can restart home medications tomorrow 04/22/2022 as tolerated - if SBP >160 throughout the day, can restart home meds today (5) HLD (hyperlipidemia): Plan: - Continue on baby aspirin, hold Lasix and losartan for now with BP being 118/63 - Can resume per the day team - Cont statin therapy HS - EKG reviewed showing atrial paced rhythm, no acute changes (6) Prediabetes: Plan: - A1c pending - glucose is 112 on admission - Pt is not on any home medications - Diet and exercise to be encouraged post-op - monitor BG for now (7) Stage 3b chronic kidney disease (CKD): Plan: - Holding losartan and lasix as above, Cr. is currently 1.08, BUN 25 on admission - Cr 0.9 today - restart losaratan tomorrow 04/22/2022 unless persistently hypertensive today - monitor for now - encourage PO intake - tolerating well (8) Hypothyroidism: Plan: - Cont levothyroxine BB Plan DVT ppx: heparin SC Code Status: Full Code Dispo: telemetry Brent Cantrell MD [facility] Medicine Admission and Anticipated Discharge Date Admission Date: April 20, 2022 Subjective Patient with h/o SSS s/p PPM 10/2020, HTN, HLD, HFpEF, CKD, hypothyroidism presented with left ankle fracture after fall on ice 04/20/2022. Patient is s/p OR with ortho 04/20/2022. PT recommends inpatient rehab, patient would like to go home. Patient feels well today. Denies significant pain in left ankle. Denies chest pain, shortness of breath, n/v/d, abdominal pain, dysuria. Tolerating diet well. Review of Systems Review of Systems: All systems reviewed & are unremarkable except as noted in Subjective Physical Exam Physical Exam: General: AAOx3, N AD, + Obese with B IA of 43.1 Head: N ormocephalic, atra umatic ENT: PERRL, EOMI, no pharynge al exudate, mucous membranes moist C hest: Clear to aus cultation, on room air,no adventiti ous breath sounds Cardiac: Regular r ate and rhythm, no murmur, no JVD, good capillary ref ill Abdominal: NAB S x 4 quadrants, s oft, nondistended, nontender to palp ation, no rebound or guarding Extrem ities: Left leg se t and wrapped, oth erwise normal insp ection, no periphe ral edema or eryth maddie, calfs nontend er to palpation Ps ych: Normal mood a nd affect Neuro: A AO x 3, strength i ntact bilaterally and rated 5/5, no motor deficits, sp eech is clear, no peripheral sensory deficits Results & Data Results & Data ([facility]) Vital Signs (Past 12 Hours) Vital Signs Temp Pulse Pulse Resp BP BP Pulse Ox 04/21/22 08:00 74 04/21/22 07:44 36.8 C 77 18 127/81 95 04/21/22 03:00 36.7 C 81 20 131/80 96 O2 Del Method 04/21/22 08:00 04/21/22 07:44 Room Air 04/21/22 03:00 Room Air Diagnostic Findings Laboratory Results WBC 9.08 K/ul (4.8-10.8) 04/21/22 07:45 RBC 3.93 M/uL (3.93-5.22) 04/21/22 07:45 Hgb 12.1 g/dl (12.0-16.0) 04/21/22 07:45 Hct 36.8 % (34.1-44.9) 04/21/22 07:45 MCV 93.6 fL (80.0-100.0) 04/21/22 07:45 MCH 30.8 pg (25.0-34.0) 04/21/22 07:45 MCHC 32.9 g/dL (32.0-36.0) 04/21/22 07:45 RDW Std Deviation 52.5 fL (36.4-46.3) H 04/21/22 07:45 RDW Coeff of Mino 15.1 % (11.5-14.5) H 04/21/22 07:45 Plt Count 150 K/uL (130-400) 04/21/22 07:45 MPV 9.0 fL (9.4-12.3) L 04/21/22 07:45 Immature Gran % (Auto) 0.2 % 04/20/22 10:07 Neut % (Auto) 70.6 % 04/20/22 10:07 Lymph % (Auto) 18.6 % 04/20/22 10:07 Clark % (Auto) 7.8 % 04/20/22 10:07 Eos % (Auto) 2.4 % 04/20/22 10:07 Baso % (Auto) 0.4 % 04/20/22 10:07 Neut # (Auto) 3.81 K/uL (1.4-6.5) 04/20/22 10:07 Lymph # (Auto) 1.00 K/uL (1.2-3.4) L 04/20/22 10:07 Clark # (Auto) 0.42 K/uL (0.24-0.82) 04/20/22 10:07 Eos # (Auto) 0.13 K/uL (0-0.50) 04/20/22 10:07 Baso # (Auto) 0.02 K/uL (0-0.2) 04/20/22 10:07 Immature Gran # (Auto) 0.01 K/uL (0.00-0.02) 04/20/22 10:07 Sodium 143 mmol/L (136-145) 04/21/22 07:45 Potassium 4.0 mmol/L (3.5-5.1) 04/21/22 07:45 Chloride 108 mmol/L (98-107) H 04/21/22 07:45 Carbon Dioxide 28 mmol/L (21-32) 04/21/22 07:45 Anion Gap 7 (3-11) 04/21/22 07:45 BUN 17 mg/dl (6-23) 04/21/22 07:45 Creatinine 0.90 mg/dl (0.6-1.2) 04/21/22 07:45 Est Cr Clr Drug Dosing 70.0 ml/min 04/21/22 07:45 Est GFR ( Amer) 75.1 ml/min 04/21/22 07:45 Est GFR (Non-Af Amer) 64.8 ml/min 04/21/22 07:45 BUN/Creatinine Ratio 18.9 (10-20) 04/21/22 07:45 Glucose 113 mg/dl (70-99(Fasting)) H 04/21/22 07:45 Calcium 8.8 mg/dl (8.5-10.1) 04/21/22 07:45 Total Bilirubin 0.4 mg/dl (0.2-1.0) 04/20/22 10:07 AST 25 U/L (13-39) 04/20/22 10:07 ALT 21 U/L (7-52) 04/20/22 10:07 Alkaline Phosphatase 74 U/L (34-104) 04/20/22 10:07 Total Protein 7.4 gm/dl (6.0-8.3) 04/20/22 10:07 Albumin 4.4 gm/dl (3.4-5.0) 04/20/22 10:07 Globulin 3.0 gm/dl (2.5-4.0) 04/20/22 10:07 Albumin/Globulin Ratio 1.5 (0.9-2) 04/20/22 10:07 Urine Color Yellow 04/20/22 10:23 Urine Appearance Clear (Clear) 04/20/22 10:23 Urine pH 5.0 (4.5-7.5) 04/20/22 10:23 Ur Specific [place] 1.007 (1.000-1.030) 04/20/22 10:23 Urine Protein Negative (Negative) 04/20/22 10:23 Urine Glucose (UA) Negative (Negative) 04/20/22 10:23 Urine Ketones Negative (Negative) 04/20/22 10:23 Urine Blood Negative (Negative) 04/20/22 10:23 Urine Nitrite Negative (Negative) 04/20/22 10:23 Urine Bilirubin Negative (Negative) 04/20/22 10:23 Urine Urobilinogen Negative (Negative) 04/20/22 10:23 Ur Leukocyte Esterase Negative (Negative) 04/20/22 10:23 SARS-CoV-2, RNA, NAAT NEGATIVE (NEGATIVE) 04/20/22 10:09 Impressions Chest X-Ray 04/20/22 11:58 XR chest 1V portable HISTORY: Left ankle fracture. preop COMPARISON: None. FINDINGS: There are low lung volumes. A few small left basilar linear densities favor subsegmental atelectasis or scarring. Otherwise, the lungs are clear. No evidence for pulmonary edema. There is a small hiatus hernia. Prior cholecystectomy. Left-sided dual-chamber pacemaker. No pleural effusions. No pneumothorax. IMPRESSION: A few small left basilar linear densities favoring subsegmental atelectasis or scarring. Otherwise, no acute process within the chest. ACT 112: Negative or not required by law. Electronically signed by: Man Alvarenga M.D. 04/20/2022 12:34 PM Ankle X-Ray 04/20/22 12:50 FL ankle LT min 3V RTN CLINICAL HISTORY: LT ANKLE ORIF COMPARISON STUDY: Left ankle radiographs performed earlier today. FLUOROSCOPY TIME: 29.3 seconds. FLUOROSCOPIC IMAGES: 3 FINDINGS: Fluoroscopy was provided during open reduction and internal fixation of the fracture/dislocation of the left ankle. Fracture alignment appears anatomic. Plate and screw fixation of the fibular fracture is noted with screw fixation of the medial malleolar fracture. There are no unexpected radiopaque foreign bodies. IMPRESSION: Fluoroscopy provided during left ankle open reduction and internal fixation. ACT 112: Negative or not required by law. Electronically signed by: Charan Cruz M.D. 04/20/2022 3:40 PM Medications Administered Current Inpatient Medications Acetaminophen (Acetaminophen 500 Mg Tab) 1,000 mg PO TID [facility] Stop: 05/20/22 18:59 Last Admin: 04/21/22 08:47 Dose: 1,000 mg Albuterol (Albuterol Hfa 8 Gm Inhaler) 2 puffs INH Q4 PRN PRN Reason: Shortness Of Breath Or Wheezin Stop: 05/20/22 18:06 Aspirin (Aspirin 81 Mg Ectab) 81 mg PO DAILY MADY Stop: 05/21/22 08:59 Last Admin: 04/21/22 08:49 Dose: 81 mg Atorvastatin Calcium (Atorvastatin 10 Mg Tab) 10 mg PO QAM [facility] Stop: 05/21/22 08:59 Last Admin: 04/21/22 08:49 Dose: 10 mg Bisacodyl (Bisacodyl 5 Mg Tabec) 5 mg PO DAILY [facility] Stop: 05/21/22 08:59 Last Admin: 04/21/22 08:49 Dose: 5 mg Fluticasone Furoate (Fluticasone Furoate 100mcg 14 Puffs/Inhaler) 1 puffs INH DAILY [facility] Stop: 05/21/22 08:59 Last Admin: 04/21/22 08:50 Dose: 1 puffs Gabapentin (Gabapentin 100 Mg Cap) 100 mg PO HS [facility] Stop: 05/20/22 20:59 Last Admin: 04/20/22 21:33 Dose: 100 mg Guaifenesin/Codeine Phosphate (Guaifenesin/Codeine 200mg/20mg 10ml Udc) 10 ml PO Q6H PRN PRN Reason: Cough Stop: 05/20/22 21:11 Levothyroxine Sodium (Levothyroxine Sodium 50 Mcg Tablet) 50 mcg PO DAILYBB [facility] Stop: 05/21/22 06:29 Last Admin: 04/21/22 05:57 Dose: 50 mcg Loratadine (Loratadine 10 Mg Tab) 10 mg PO DAILY [facility] Stop: 05/21/22 08:59 Last Admin: 04/21/22 08:50 Dose: 10 mg Morphine Sulfate (Morphine Sulfate 4 Mg/Ml 1 Ml Carp\Vial) 2 mg IV Q6H PRN PRN Reason: Pain, severe, rating 8,9,10 Stop: 05/04/22 18:06 Multivitamins (Multivitamin Tab) 1 tab PO DAILY [facility] Stop: 05/21/22 08:59 Last Admin: 04/21/22 08:50 Dose: 1 tab Ondansetron HCl (Ondansetron Inj 2 Mg/Ml 2 Ml Vial) 4 mg IV Q4H PRN PRN Reason: Nausea And Vomiting Stop: 05/20/22 18:06 Oxycodone HCl (Oxycodone Hcl Ir 5 Mg Tab (Immediate Release)) 5 mg PO Q6H PRN PRN Reason: moderate pain, rating 5,6,7 Stop: 05/04/22 18:06 Polyethylene Glycol (Polyethylene (Miralax) 17 Gm Pack) 17 gm PO DAILY MADY Stop: 05/21/22 08:59 Last Admin: 04/21/22 08:50 Dose: 17 gm (1) Trimalleolar fracture of left ankle Encounter type: initial encounter Fracture type: closed Qualified Code(s): S82.852A - Displaced trimalleolar fracture of left lower leg, initial encounter for closed fracture (2) HTN (hypertension) Hypertension type: unspecified Qualified Code(s): I10 - Essential (primary) hypertension
--- NOTE | 2022-04-21 12:47 | Orthopedic Progress Note ---
Date of Service April 21, 2022 Assessment & Plan (1) Trimalleolar fracture of left ankle: Plan: POD #1 s/p ORIF Left ankle fracture, doing as well as expected. Resume diet. NWB LLE with walker or kneeling scooter. OOB to chair. Continue pain control. DVT prophylaxis: TEDs 3 weeks, foot pumps while in hospital, ASA 81 mg BID for 4 weeks. PT/OT. D/C planning. Continue care per primary service. Outpatient PT in 1 week. F/U in Dr. Stearns's office in 2 weeks for staple removal. Ok to d/c from ortho standpoint once medically stable. Present on Admission?: Yes Admission and Anticipated Discharge Date Admission Date: April 20, 2022 Subjective Doing well, some posterior discomfort left leg. Review of Systems Review of Systems: All systems reviewed & are unremarkable except as noted in HPI & below Physical Exam Physical Exam: LLE: BCR < 2 sec. Sensation to light touch intact distally. Wiggling ankle and toes. Splint/Dressing is clean, dry, intact. Sitting comfortably in chair. Results & Data ([facility]) Vital Signs (Past 12 Hours) Vital Signs Temp Pulse Pulse Resp BP BP Pulse Ox 04/21/22 12:16 37.3 C 60 18 116/72 97 04/21/22 08:00 74 04/21/22 07:44 36.8 C 77 18 127/81 95 04/21/22 03:00 36.7 C 81 20 131/80 96 O2 Del Method 04/21/22 12:16 Room Air 04/21/22 08:00 04/21/22 07:44 Room Air 04/21/22 03:00 Room Air Laboratory Results Laboratory Results WBC 9.08 K/ul (4.8-10.8) 04/21/22 07:45 RBC 3.93 M/uL (3.93-5.22) 04/21/22 07:45 Hgb 12.1 g/dl (12.0-16.0) 04/21/22 07:45 Hct 36.8 % (34.1-44.9) 04/21/22 07:45 MCV 93.6 fL (80.0-100.0) 04/21/22 07:45 MCH 30.8 pg (25.0-34.0) 04/21/22 07:45 MCHC 32.9 g/dL (32.0-36.0) 04/21/22 07:45 RDW Std Deviation 52.5 fL (36.4-46.3) H 04/21/22 07:45 RDW Coeff of Mino 15.1 % (11.5-14.5) H 04/21/22 07:45 Plt Count 150 K/uL (130-400) 04/21/22 07:45 MPV 9.0 fL (9.4-12.3) L 04/21/22 07:45 Immature Gran % (Auto) 0.2 % 04/20/22 10:07 Neut % (Auto) 70.6 % 04/20/22 10:07 Lymph % (Auto) 18.6 % 04/20/22 10:07 [place] % (Auto) 7.8 % 04/20/22 10:07 Eos % (Auto) 2.4 % 04/20/22 10:07 Baso % (Auto) 0.4 % 04/20/22 10:07 Neut # (Auto) 3.81 K/uL (1.4-6.5) 04/20/22 10:07 Lymph # (Auto) 1.00 K/uL (1.2-3.4) L 04/20/22 10:07 [place] # (Auto) 0.42 K/uL (0.24-0.82) 04/20/22 10:07 Eos # (Auto) 0.13 K/uL (0-0.50) 04/20/22 10:07 Baso # (Auto) 0.02 K/uL (0-0.2) 04/20/22 10:07 Immature Gran # (Auto) 0.01 K/uL (0.00-0.02) 04/20/22 10:07 Sodium 143 mmol/L (136-145) 04/21/22 07:45 Potassium 4.0 mmol/L (3.5-5.1) 04/21/22 07:45 Chloride 108 mmol/L (98-107) H 04/21/22 07:45 Carbon Dioxide 28 mmol/L (21-32) 04/21/22 07:45 Anion Gap 7 (3-11) 04/21/22 07:45 BUN 17 mg/dl (6-23) 04/21/22 07:45 Creatinine 0.90 mg/dl (0.6-1.2) 04/21/22 07:45 Est Cr Clr Drug Dosing 70.0 ml/min 04/21/22 07:45 Est GFR ( Amer) 75.1 ml/min 04/21/22 07:45 Est GFR (Non-Af Amer) 64.8 ml/min 04/21/22 07:45 BUN/Creatinine Ratio 18.9 (10-20) 04/21/22 07:45 Glucose 113 mg/dl (70-99(Fasting)) H 04/21/22 07:45 Calcium 8.8 mg/dl (8.5-10.1) 04/21/22 07:45 Total Bilirubin 0.4 mg/dl (0.2-1.0) 04/20/22 10:07 AST 25 U/L (13-39) 04/20/22 10:07 ALT 21 U/L (7-52) 04/20/22 10:07 Alkaline Phosphatase 74 U/L (34-104) 04/20/22 10:07 Total Protein 7.4 gm/dl (6.0-8.3) 04/20/22 10:07 Albumin 4.4 gm/dl (3.4-5.0) 04/20/22 10:07 Globulin 3.0 gm/dl (2.5-4.0) 04/20/22 10:07 Albumin/Globulin Ratio 1.5 (0.9-2) 04/20/22 10:07 Urine Color Yellow 04/20/22 10:23 Urine Appearance Clear (Clear) 04/20/22 10:23 Urine pH 5.0 (4.5-7.5) 04/20/22 10:23 Ur Specific [place] 1.007 (1.000-1.030) 04/20/22 10:23 Urine Protein Negative (Negative) 04/20/22 10:23 Urine Glucose (UA) Negative (Negative) 04/20/22 10:23 Urine Ketones Negative (Negative) 04/20/22 10:23 Urine Blood Negative (Negative) 04/20/22 10:23 Urine Nitrite Negative (Negative) 04/20/22 10:23 Urine Bilirubin Negative (Negative) 04/20/22 10:23 Urine Urobilinogen Negative (Negative) 04/20/22 10:23 Ur Leukocyte Esterase Negative (Negative) 04/20/22 10:23 SARS-CoV-2, RNA, NAAT NEGATIVE (NEGATIVE) 04/20/22 10:09 Impressions Chest X-Ray 04/20/22 11:58 XR chest 1V portable HISTORY: Left ankle fracture. preop COMPARISON: None. FINDINGS: There are low lung volumes. A few small left basilar linear densities favor subsegmental atelectasis or scarring. Otherwise, the lungs are clear. No evidence for pulmonary edema. There is a small hiatus hernia. Prior cholecyst ectomy. Left-sided dual-chamber pacemaker. No pleural effusions. No pneumothorax. IMPRESSION: A few small left basilar linear densities favoring subsegmental atelectasis or scarring. Otherwise, no acute process within the chest. ACT 112: Negative or not required by law. Electronically signed by: Man Alvarenga M.D. 04/20/2022 12:34 PM Ankle X-Ray 04/20/22 12:50 FL ankle LT min 3V RTN CLINICAL HISTORY: LT ANKLE ORIF COMPARISON STUDY: Left ankle radiographs performed earlier today. FLUOROSCOPY TIME: 29.3 seconds. FLUOROSCOPIC IMAGES: 3 FINDINGS: Fluoroscopy was provided during open reduction and internal fixation of the fracture/dislocation of the left ankle. Fracture alignment appears anatomic. Plate and screw fixation of the fibular fracture is noted with screw fixation of the medial malleolar fracture. There are no unexpected radiopaque foreign bodies. IMPRESSION: Fluoroscopy provided during left ankle open reduction and internal fixation. ACT 112: Negative or not required by law. Electronically signed by: Charan Cruz M.D. 04/20/2022 3:40 PM (1) Trimalleolar fracture of left ankle Encounter type: initial encounter Fracture type: closed Qualified Code(s): S82.852A - Displaced trimalleolar fracture of left lower leg, initial encounter for closed fracture
[2022-04-21 12:59] LABS: Estimated Average Glucose 120 mg/dl; Hemoglobin A1C 5.8 % (4.5-5.6)
[2022-04-21] MEDS: HEPARIN SOD 5,000 UNIT/0.5 ML VIAL SQ SCH ×2 (14:41→20:14)
[2022-04-21] MEDS: oxyCODONE HCL IR 5 MG TAB (IMMEDIATE RELEASE) PO PRN (18:52)
[2022-04-21] MEDS: GABAPENTIN 100 MG CAP PO SCH (20:14)
[2022-04-22] MEDS: HEPARIN SOD 5,000 UNIT/0.5 ML VIAL SQ SCH ×3 (05:38→20:29)
[2022-04-22] MEDS: LEVOTHYROXINE SODIUM 50 MCG TABLET PO SCH (05:38)
[2022-04-22] MEDS: oxyCODONE HCL IR 5 MG TAB (IMMEDIATE RELEASE) PO PRN (05:38)
--- NOTE | 2022-04-22 06:18 | Electrocardiogram Report ---
Test Reason : Blood Pressure : / mmHG Vent. Rate : 060 BPM Atrial Rate : 060 BPM P-R Int : 144 ms QRS Dur : 072 ms QT Int : 416 ms P-R-T Axes : 090 012 003 degrees QTc Int : 416 ms Poor data quality, interpretation may be adversely affected Atrial-paced rhythm Low voltage QRS Nonspecific T wave abnormality Abnormal ECG No previous ECGs available Confirmed by Anthony Quintanilla ([id number]) on 04/22/2022 6:18:46 AM Referred By: REFERRED SELF Confirmed By:Anthony Quintanilla
[2022-04-22] MEDS: FLUTICASONE FUROATE 100MCG 14 PUFFS/INHALER INH SCH (09:05)
[2022-04-22] MEDS: ACETAMINOPHEN 500 MG TAB PO SCH ×3 (09:06→20:29)
[2022-04-22] MEDS: MULTIVITAMIN TAB PO SCH (09:06)
[2022-04-22] MEDS: ATORVASTATIN 10 MG TAB PO SCH (09:07)
[2022-04-22] MEDS: LORATADINE 10 MG TAB PO SCH (09:07)
[2022-04-22] MEDS: bisacodyL 5 MG TABEC PO SCH (09:07)
[2022-04-22] MEDS: ASPIRIN 81 MG ECTAB PO SCH (09:07)
[2022-04-22] MEDS: POLYETHYLENE (MIRALAX) 17 GM PACK PO SCH (09:07)
--- NOTE | 2022-04-22 11:48 | Hospitalist Progress Note ---
Date of Service April 22, 2022 Assessment & Plan (1) Fall: Plan: - sustained from fall on ice 04/20/2022 - s/p fracture of left ankle - no s/p OR with ortho 04/20/2022 - PT/OT - inpatient rehab - insurance holding up discharge process (2) Trimalleolar fracture of left ankle: Plan: - Admit to med surg with tele - Ortho consulted - s/p OR with ortho 04/20/2022 - Preop Ancef - Pain control with Tylenol [id number], oxycodone 5 mg as needed, IV morphine for breakthrough pain - Bowel regimen with MiraLAX and Dulcolax ordered - PT/OT consults - recommend inpatient rehab - insurance holding up discharge (3) SSS (sick sinus syndrome): Plan: - s/p PPM 10/2020 (4) HTN (hypertension): Plan: - normotensive at this time - can restart home medications tomorrow 04/22/2022 as tolerated - if SBP >160 throughout the day, can restart home meds today (5) HLD (hyperlipidemia): Plan: - Continue on baby aspirin, hold Lasix and losartan for now with BP being 118/63 - Can resume per the day team - Cont statin therapy HS - EKG reviewed showing atrial paced rhythm, no acute changes (6) Prediabetes: Plan: - A1c pending - glucose is 112 on admission - Pt is not on any home medications - Diet and exercise to be encouraged post-op - monitor BG for now (7) Stage 3b chronic kidney disease (CKD): Plan: - Holding losartan and lasix as above, Cr. is currently 1.08, BUN 25 on admission - Cr 0.9 today - restart losaratan tomorrow 04/22/2022 unless persistently hypertensive today - monitor for now - encourage PO intake - tolerating well (8) Hypothyroidism: Plan: - Cont levothyroxine BB Plan DVT ppx: heparin SC Code Status: Full Code Dispo: telemetry Brent Cantrell MD [facility] Medicine Admission and Anticipated Discharge Date Admission Date: April 20, 2022 Subjective Patient with h/o SSS s/p PPM 10/2020, HTN, HLD, HFpEF, CKD, hypothyroidism presented with left ankle fracture after fall on ice 04/20/2022. Patient is s/p OR with ortho 04/20/2022. PT recommends inpatient rehab, insurance closed until Sunday, patient will be here unnecessarily due to insurance issues until Sunday04/25/2022. Patient feels well today. Denies significant pain in left ankle. Denies chest pain, shortness of breath, n/v/d, abdominal pain, dysuria. Tolerating diet well. Review of Systems Review of Systems: All systems reviewed & are unremarkable except as noted in Subjective Physical Exam Physical Exam: General: AAOx3, N AD, + Obese with B NV of 43.1 Head: N ormocephalic, atra umatic ENT: PERRL, EOMI, no pharynge al exudate, mucous membranes moist C hest: Clear to aus cultation, on room air,no adventiti ous breath sounds Cardiac: Regular r ate and rhythm, no murmur, no JVD, good capillary ref ill Abdominal: NAB S x 4 quadrants, s oft, nondistended, nontender to palp ation, no rebound or guarding Extrem ities: Left leg se t and wrapped, oth erwise normal insp ection, no periphe ral edema or eryth maddie, calfs nontend er to palpation Ps ych: Normal mood a nd affect Neuro: A AO x 3, strength i ntact bilaterally and rated 5/5, no motor deficits, sp eech is clear, no peripheral sensory deficits Results & Data Results & Data ([facility]) Vital Signs (Past 12 Hours) Vital Signs Temp Pulse Pulse Resp BP Pulse Ox O2 Del Method 04/22/22 08:00 Room Air 04/22/22 08:00 36.9 C 74 18 128/80 94 Room Air 04/22/22 07:22 73 04/22/22 03:00 37.1 C 71 18 134/73 95 Room Air Diagnostic Findings Laboratory Results WBC 9.08 K/ul (4.8-10.8) 04/21/22 07:45 RBC 3.93 M/uL (3.93-5.22) 04/21/22 07:45 Hgb 12.1 g/dl (12.0-16.0) 04/21/22 07:45 Hct 36.8 % (34.1-44.9) 04/21/22 07:45 MCV 93.6 fL (80.0-100.0) 04/21/22 07:45 MCH 30.8 pg (25.0-34.0) 04/21/22 07:45 MCHC 32.9 g/dL (32.0-36.0) 04/21/22 07:45 RDW Std Deviation 52.5 fL (36.4-46.3) H 04/21/22 07:45 RDW Coeff of Mino 15.1 % (11.5-14.5) H 04/21/22 07:45 Plt Count 150 K/uL (130-400) 04/21/22 07:45 MPV 9.0 fL (9.4-12.3) L 04/21/22 07:45 Immature Gran % (Auto) 0.2 % 04/20/22 10:07 Neut % (Auto) 70.6 % 04/20/22 10:07 Lymph % (Auto) 18.6 % 04/20/22 10:07 [place] % (Auto) 7.8 % 04/20/22 10:07 Eos % (Auto) 2.4 % 04/20/22 10:07 Baso % (Auto) 0.4 % 04/20/22 10:07 Neut # (Auto) 3.81 K/uL (1.4-6.5) 04/20/22 10:07 Lymph # (Auto) 1.00 K/uL (1.2-3.4) L 04/20/22 10:07 [place] # (Auto) 0.42 K/uL (0.24-0.82) 04/20/22 10:07 Eos # (Auto) 0.13 K/uL (0-0.50) 04/20/22 10:07 Baso # (Auto) 0.02 K/uL (0-0.2) 04/20/22 10:07 Immature Gran # (Auto) 0.01 K/uL (0.00-0.02) 04/20/22 10:07 Sodium 143 mmol/L (136-145) 04/21/22 07:45 Potassium 4.0 mmol/L (3.5-5.1) 04/21/22 07:45 Chloride 108 mmol/L (98-107) H 04/21/22 07:45 Carbon Dioxide 28 mmol/L (21-32) 04/21/22 07:45 Anion Gap 7 (3-11) 04/21/22 07:45 BUN 17 mg/dl (6-23) 04/21/22 07:45 Creatinine 0.90 mg/dl (0.6-1.2) 04/21/22 07:45 Est Cr Clr Drug Dosing 70.0 ml/min 04/21/22 07:45 Est GFR ( Amer) 75.1 ml/min 04/21/22 07:45 Est GFR (Non-Af Amer) 64.8 ml/min 04/21/22 07:45 BUN/Creatinine Ratio 18.9 (10-20) 04/21/22 07:45 Glucose 113 mg/dl (70-99(Fasting)) H 04/21/22 07:45 Estimat Average Glucose 120 mg/dl 04/21/22 07:45 Hemoglobin A1c 5.8 % (4.5-5.6) H 04/21/22 07:45 Calcium 8.8 mg/dl (8.5-10.1) 04/21/22 07:45 Total Bilirubin 0.4 mg/dl (0.2-1.0) 04/20/22 10:07 AST 25 U/L (13-39) 04/20/22 10:07 ALT 21 U/L (7-52) 04/20/22 10:07 Alkaline Phosphatase 74 U/L (34-104) 04/20/22 10:07 Total Protein 7.4 gm/dl (6.0-8.3) 04/20/22 10:07 Albumin 4.4 gm/dl (3.4-5.0) 04/20/22 10:07 Globulin 3.0 gm/dl (2.5-4.0) 04/20/22 10:07 Albumin/Globulin Ratio 1.5 (0.9-2) 04/20/22 10:07 Urine Color Yellow 04/20/22 10:23 Urine Appearance Clear (Clear) 04/20/22 10:23 Urine pH 5.0 (4.5-7.5) 04/20/22 10:23 Ur Specific [place] 1.007 (1.000-1.030) 04/20/22 10:23 Urine Protein Negative (Negative) 04/20/22 10:23 Urine Glucose (UA) Negative (Negative) 04/20/22 10:23 Urine Ketones Negative (Negative) 04/20/22 10:23 Urine Blood Negative (Negative) 04/20/22 10:23 Urine Nitrite Negative (Negative) 04/20/22 10:23 Urine Bilirubin Negative (Negative) 04/20/22 10:23 Urine Urobilinogen Negative (Negative) 04/20/22 10:23 Ur Leukocyte Esterase Negative (Negative) 04/20/22 10:23 SARS-CoV-2, RNA, NAAT NEGATIVE (NEGATIVE) 04/20/22 10:09 Impressions Chest X-Ray 04/20/22 11:58 XR chest 1V portable HISTORY: Left ankle fracture. preop COMPARISON: None. FINDINGS: There are low lung volumes. A few small left basilar linear densities favor subsegmental atelectasis or scarring. Otherwise, the lungs are clear. No evidence for pulmonary edema. There is a small hiatus hernia. Prior cholecystectomy. Left-sided dual-chamber pacemaker. No pleural effusions. No pneumothorax. IMPRESSION: A few small left basilar linear densities favoring subsegmental atelectasis or scarring. Otherwise, no acute process within the chest. ACT 112: Negative or not required by law. Electronically signed by: Man Alvarenga M.D. 04/20/2022 12:34 PM Ankle X-Ray 04/20/22 12:50 FL ankle LT min 3V RTN CLINICAL HISTORY: LT ANKLE ORIF COMPARISON STUDY: Left ankle radiographs performed earlier today. FLUOROSCOPY TIME: 29.3 seconds. FLUOROSCOPIC IMAGES: 3 FINDINGS: Fluoroscopy was provided during open reduction and internal fixation of the fracture/dislocation of the left ankle. Fracture alignment appears anatomic. Plate and screw fixation of the fibular fracture is noted with screw fixation of the medial malleolar fracture. There are no unexpected radiopaque foreign bodies. IMPRESSION: Fluoroscopy provided during left ankle open reduction and internal fixation. ACT 112: Negative or not required by law. Electronically signed by: Charan Cruz M.D. 04/20/2022 3:40 PM Medications Administered Current Inpatient Medications Acetaminophen (Acetaminophen 500 Mg Tab) 1,000 mg PO TID [facility]ADY Stop: 05/20/22 18:59 Last Admin: 04/22/22 09:06 Dose: 1,000 mg Albuterol (Albuterol Hfa 8 Gm Inhaler) 2 puffs INH Q4 PRN PRN Reason: Shortness Of Breath Or Wheezin Stop: 05/20/22 18:06 Aspirin (Aspirin 81 Mg Ectab) 81 mg PO DAILY [facility] Stop: 05/21/22 08:59 Last Admin: 04/22/22 09:07 Dose: 81 mg Atorvastatin Calcium (Atorvastatin 10 Mg Tab) 10 mg PO QAM [facility] Stop: 05/21/22 08:59 Last Admin: 04/22/22 09:07 Dose: 10 mg Bisacodyl (Bisacodyl 5 Mg Tabec) 5 mg PO DAILY [facility] Stop: 05/21/22 08:59 Last Admin: 04/22/22 09:07 Dose: 5 mg Fluticasone Furoate (Fluticasone Furoate 100mcg 14 Puffs/Inhaler) 1 puffs INH DAILY [facility] Stop: 05/21/22 08:59 Last Admin: 04/22/22 09:05 Dose: 1 puffs Gabapentin (Gabapentin 100 Mg Cap) 100 mg PO HS [facility] Stop: 05/20/22 20:59 Last Admin: 04/21/22 20:14 Dose: 100 mg Guaifenesin/Codeine Phosphate (Guaifenesin/Codeine 200mg/20mg 10ml Udc) 10 ml PO Q6H PRN PRN Reason: Cough Stop: 05/20/22 21:11 Heparin Sodium (Porcine) (Heparin Sod 5,000 Unit/0.5 Ml Vial) 5,000 units SQ Q8 [facility] Stop: 05/21/22 13:59 Last Admin: 04/22/22 05:38 Dose: 5,000 units Levothyroxine Sodium (Levothyroxine Sodium 50 Mcg Tablet) 50 mcg PO DAILYBB [facility] Stop: 05/21/22 06:29 Last Admin: 04/22/22 05:38 Dose: 50 mcg Loratadine (Loratadine 10 Mg Tab) 10 mg PO DAILY [facility] Stop: 05/21/22 08:59 Last Admin: 04/22/22 09:07 Dose: 10 mg Morphine Sulfate (Morphine Sulfate 4 Mg/Ml 1 Ml Carp\Vial) 2 mg IV Q6H PRN PRN Reason: Pain, severe, rating 8,9,10 Stop: 05/04/22 18:06 Last Admin: 04/22/22 10:04 Dose: 2 mg Multivitamins (Multivitamin Tab) 1 tab PO DAILY [facility] Stop: 05/21/22 08:59 Last Admin: 04/22/22 09:06 Dose: 1 tab Ondansetron HCl (Ondansetron Inj 2 Mg/Ml 2 Ml Vial) 4 mg IV Q4H PRN PRN Reason: Nausea And Vomiting Stop: 05/20/22 18:06 Oxycodone HCl (Oxycodone Hcl Ir 5 Mg Tab (Immediate Release)) 5 mg PO Q6H PRN PRN Reason: moderate pain, rating 5,6,7 Stop: 05/04/22 18:06 Last Admin: 04/22/22 05:38 Dose: 5 mg Polyethylene Glycol (Polyethylene (Miralax) 17 Gm Pack) 17 gm PO DAILY [facility] Stop: 05/21/22 08:59 Last Admin: 04/22/22 09:07 Dose: 17 gm (1) Trimalleolar fracture of left ankle Encounter type: initial encounter Fracture type: closed Qualified Code(s): S82.852A - Displaced trimalleolar fracture of left lower leg, initial encounter for closed fracture (2) HTN (hypertension) Hypertension type: unspecified Qualified Code(s): I10 - Essential (primary) hypertension
[2022-04-22] MEDS: GABAPENTIN 100 MG CAP PO SCH (20:29)
[2022-04-23] MEDS: LEVOTHYROXINE SODIUM 50 MCG TABLET PO SCH (05:46)
[2022-04-23] MEDS: HEPARIN SOD 5,000 UNIT/0.5 ML VIAL SQ SCH ×3 (05:46→22:12)
[2022-04-23] MEDS: FLUTICASONE FUROATE 100MCG 14 PUFFS/INHALER INH SCH (08:30)
[2022-04-23] MEDS: ACETAMINOPHEN 500 MG TAB PO SCH ×3 (08:31→20:05)
[2022-04-23] MEDS: ASPIRIN 81 MG ECTAB PO SCH (08:34)
[2022-04-23] MEDS: ATORVASTATIN 10 MG TAB PO SCH (08:34)
[2022-04-23] MEDS: bisacodyL 5 MG TABEC PO SCH (08:35)
[2022-04-23] MEDS: LORATADINE 10 MG TAB PO SCH (08:35)
[2022-04-23] MEDS: MULTIVITAMIN TAB PO SCH (08:35)
[2022-04-23] MEDS: POLYETHYLENE (MIRALAX) 17 GM PACK PO SCH (08:38)
--- NOTE | 2022-04-23 11:52 | Hospitalist Progress Note ---
Date of Service April 23, 2022 Assessment & Plan (1) Fall: Plan: - sustained from fall on ice 04/20/2022 - s/p fracture of left ankle - no s/p OR with ortho 04/20/2022 - PT/OT - inpatient rehab - insurance holding up discharge process (2) Trimalleolar fracture of left ankle: Plan: - Admit to med surg with tele - Ortho consulted - s/p OR with ortho 04/20/2022 - Preop Ancef - Pain control with Tylenol [id number], oxycodone 5 mg as needed, IV morphine for breakthrough pain - Bowel regimen with MiraLAX and Dulcolax ordered - PT/OT consults - recommend inpatient rehab - insurance holding up discharge (3) SSS (sick sinus syndrome): Plan: - s/p PPM 10/2020 (4) HTN (hypertension): Plan: - normotensive at this time - can restart home medications tomorrow 04/22/2022 as tolerated - if SBP >160 throughout the day, can restart home meds today (5) HLD (hyperlipidemia): Plan: - Continue on baby aspirin, hold Lasix and losartan for now with BP being 118/63 - Can resume per the day team - Cont statin therapy HS - EKG reviewed showing atrial paced rhythm, no acute changes (6) Prediabetes: Plan: - A1c pending - glucose is 112 on admission - Pt is not on any home medications - Diet and exercise to be encouraged post-op - monitor BG for now (7) Stage 3b chronic kidney disease (CKD): Plan: - Holding losartan and lasix as above, Cr. is currently 1.08, BUN 25 on admission - Cr 0.9 today - restart losaratan tomorrow 04/22/2022 unless persistently hypertensive today - monitor for now - encourage PO intake - tolerating well (8) Hypothyroidism: Plan: - Cont levothyroxine BB Plan DVT ppx: heparin SC Code Status: Full Code Dispo: telemetry Brent Cantrell MD [facility] Medicine Admission and Anticipated Discharge Date Admission Date: April 20, 2022 Subjective Patient with h/o SSS s/p PPM 10/2020, HTN, HLD, HFpEF, CKD, hypothyroidism presented with left ankle fracture after fall on ice 04/20/2022. Patient is s/p OR with ortho 04/20/2022. PT recommends inpatient rehab, insurance closed until Sunday, patient will be here unnecessarily due to insurance issues until Sunday04/25/2022. Patient feels well today, no complaints. Got tearful because she cannot be home with family for [place]. Denies pain in left ankle. Denies chest pain, shortness of breath, n/v/d, abdominal pain, dysuria. Tolerating diet well. Review of Systems Review of Systems: All systems reviewed & are unremarkable except as noted in Subjective Physical Exam Physical Exam: General: AAOx3, N AD, + Obese with B DC of 43.1 Head: N ormocephalic, atra umatic ENT: PERRL, EOMI, no pharynge al exudate, mucous membranes moist C hest: Clear to aus cultation, on room air,no adventiti ous breath sounds Cardiac: Regular r ate and rhythm, no murmur, no JVD, good capillary ref ill Abdominal: NAB S x 4 quadrants, s oft, nondistended, nontender to palp ation, no rebound or guarding Extrem ities: Left leg se t and wrapped, oth erwise normal insp ection, no periphe ral edema or eryth maddie, calfs nontend er to palpation Ps ych: Normal mood a nd affect Neuro: A AO x 3, strength i ntact bilaterally and rated 5/5, no motor deficits, sp eech is clear, no peripheral sensory deficits Results & Data Results & Data ([facility]) Vital Signs (Past 12 Hours) Vital Signs Temp Pulse Pulse Resp BP Pulse Ox O2 Del Method 04/23/22 08:22 36.6 C 85 18 125/63 94 Room Air 04/23/22 07:59 76 04/23/22 04:00 36.8 C 68 20 128/80 94 Room Air Diagnostic Findings Laboratory Results WBC 9.08 K/ul (4.8-10.8) 04/21/22 07:45 RBC 3.93 M/uL (3.93-5.22) 04/21/22 07:45 Hgb 12.1 g/dl (12.0-16.0) 04/21/22 07:45 Hct 36.8 % (34.1-44.9) 04/21/22 07:45 MCV 93.6 fL (80.0-100.0) 04/21/22 07:45 MCH 30.8 pg (25.0-34.0) 04/21/22 07:45 MCHC 32.9 g/dL (32.0-36.0) 04/21/22 07:45 RDW Std Deviation 52.5 fL (36.4-46.3) H 04/21/22 07:45 RDW Coeff of Mino 15.1 % (11.5-14.5) H 04/21/22 07:45 Plt Count 150 K/uL (130-400) 04/21/22 07:45 MPV 9.0 fL (9.4-12.3) L 04/21/22 07:45 Immature Gran % (Auto) 0.2 % 04/20/22 10:07 Neut % (Auto) 70.6 % 04/20/22 10:07 Lymph % (Auto) 18.6 % 04/20/22 10:07 M[place]reary % (Auto) 7.8 % 04/20/22 10:07 Eos % (Auto) 2.4 % 04/20/22 10:07 Baso % (Auto) 0.4 % 04/20/22 10:07 Neut # (Auto) 3.81 K/uL (1.4-6.5) 04/20/22 10:07 Lymph # (Auto) 1.00 K/uL (1.2-3.4) L 04/20/22 10:07 M[place]reary # (Auto) 0.42 K/uL (0.24-0.82) 04/20/22 10:07 Eos # (Auto) 0.13 K/uL (0-0.50) 04/20/22 10:07 Baso # (Auto) 0.02 K/uL (0-0.2) 04/20/22 10:07 Immature Gran # (Auto) 0.01 K/uL (0.00-0.02) 04/20/22 10:07 Sodium 143 mmol/L (136-145) 04/21/22 07:45 Potassium 4.0 mmol/L (3.5-5.1) 04/21/22 07:45 Chloride 108 mmol/L (98-107) H 04/21/22 07:45 Carbon Dioxide 28 mmol/L (21-32) 04/21/22 07:45 Anion Gap 7 (3-11) 04/21/22 07:45 BUN 17 mg/dl (6-23) 04/21/22 07:45 Creatinine 0.90 mg/dl (0.6-1.2) 04/21/22 07:45 Est Cr Clr Drug Dosing 70.0 ml/min 04/21/22 07:45 Est GFR ( Amer) 75.1 ml/min 04/21/22 07:45 Est GFR (Non-Af Amer) 64.8 ml/min 04/21/22 07:45 BUN/Creatinine Ratio 18.9 (10-20) 04/21/22 07:45 Glucose 113 mg/dl (70-99(Fasting)) H 04/21/22 07:45 Estimat Average Glucose 120 mg/dl 04/21/22 07:45 Hemoglobin A1c 5.8 % (4.5-5.6) H 04/21/22 07:45 Calcium 8.8 mg/dl (8.5-10.1) 04/21/22 07:45 Total Bilirubin 0.4 mg/dl (0.2-1.0) 04/20/22 10:07 AST 25 U/L (13-39) 04/20/22 10:07 ALT 21 U/L (7-52) 04/20/22 10:07 Alkaline Phosphatase 74 U/L (34-104) 04/20/22 10:07 Total Protein 7.4 gm/dl (6.0-8.3) 04/20/22 10:07 Albumin 4.4 gm/dl (3.4-5.0) 04/20/22 10:07 Globulin 3.0 gm/dl (2.5-4.0) 04/20/22 10:07 Albumin/Globulin Ratio 1.5 (0.9-2) 04/20/22 10:07 Urine Color Yellow 04/20/22 10:23 Urine Appearance Clear (Clear) 04/20/22 10:23 Urine pH 5.0 (4.5-7.5) 04/20/22 10:23 Ur Specific [place] 1.007 (1.000-1.030) 04/20/22 10:23 Urine Protein Negative (Negative) 04/20/22 10:23 Urine Glucose (UA) Negative (Negative) 04/20/22 10:23 Urine Ketones Negative (Negative) 04/20/22 10:23 Urine Blood Negative (Negative) 04/20/22 10:23 Urine Nitrite Negative (Negative) 04/20/22 10:23 Urine Bilirubin Negative (Negative) 04/20/22 10:23 Urine Urobilinogen Negative (Negative) 04/20/22 10:23 Ur Leukocyte Esterase Negative (Negative) 04/20/22 10:23 SARS-CoV-2, RNA, NAAT NEGATIVE (NEGATIVE) 04/20/22 10:09 Impressions Chest X-Ray 04/20/22 11:58 XR chest 1V portable HISTORY: Left ankle fracture. preop COMPARISON: None. FINDINGS: There are low lung volumes. A few small left basilar linear densities favor subsegmental atelectasis or scarring. Otherwise, the lungs are clear. No evidence for pulmonary edema. There is a small hiatus hernia. Prior cholecystectomy. Left-sided dual-chamber pacemaker. No pleural effusions. No pneumothorax. IMPRESSION: A few small left basilar linear densities favoring subsegmental atelectasis or scarring. Otherwise, no acute process within the chest. ACT 112: Negative or not required by law. Electronically signed by: Man Alvarenga M.D. 04/20/2022 12:34 PM Ankle X-Ray 04/20/22 12:50 FL ankle LT min 3V RTN CLINICAL HISTORY: LT ANKLE ORIF COMPARISON STUDY: Left ankle radiographs performed earlier today. FLUOROSCOPY TIME: 29.3 seconds. FLUOROSCOPIC IMAGES: 3 FINDINGS: Fluoroscopy was provided during open reduction and internal fixation of the fracture/dislocation of the left ankle. Fracture alignment appears anatomic. Plate and screw fixation of the fibular fracture is noted with screw fixation of the medial malleolar fracture. There are no unexpected radiopaque foreign bodies. IMPRESSION: Fluoroscopy provided during left ankle open reduction and internal fixation. ACT 112: Negative or not required by law. Electronically signed by: Charan Cruz M.D. 04/20/2022 3:40 PM Medications Administered Current Inpatient Medications Acetaminophen (Acetaminophen 500 Mg Tab) 1,000 mg PO TID [facility] Stop: 05/20/22 18:59 Last Admin: 04/23/22 08:31 Dose: 1,000 mg Albuterol (Albuterol Hfa 8 Gm Inhaler) 2 puffs INH Q4 PRN PRN Reason: Shortness Of Breath Or Wheezin Stop: 05/20/22 18:06 Aspirin (Aspirin 81 Mg Ectab) 81 mg PO DAILY [facility] Stop: 05/21/22 08:59 Last Admin: 04/23/22 08:34 Dose: 81 mg Atorvastatin Calcium (Atorvastatin 10 Mg Tab) 10 mg PO QAM [facility] Stop: 05/21/22 08:59 Last Admin: 04/23/22 08:34 Dose: 10 mg Bisacodyl (Bisacodyl 5 Mg Tabec) 5 mg PO DAILY [facility] Stop: 05/21/22 08:59 Last Admin: 04/23/22 08:35 Dose: 5 mg Fluticasone Furoate (Fluticasone Furoate 100mcg 14 Puffs/Inhaler) 1 puffs INH DAILY [facility] Stop: 05/21/22 08:59 Last Admin: 04/23/22 08:30 Dose: 1 puffs Gabapentin (Gabapentin 100 Mg Cap) 100 mg PO HS [facility] Stop: 05/20/22 20:59 Last Admin: 04/22/22 20:29 Dose: 100 mg Guaifenesin/Codeine Phosphate (Guaifenesin/Codeine 200mg/20mg 10ml Udc) 10 ml PO Q6H PRN PRN Reason: Cough Stop: 05/20/22 21:11 Heparin Sodium (Porcine) (Heparin Sod 5,000 Unit/0.5 Ml Vial) 5,000 units SQ Q8 [facility] Stop: 05/21/22 13:59 Last Admin: 04/23/22 05:46 Dose: 5,000 units Levothyroxine Sodium (Levothyroxine Sodium 50 Mcg Tablet) 50 mcg PO DAILYBB [facility] Stop: 05/21/22 06:29 Last Admin: 04/23/22 05:46 Dose: 50 mcg Loratadine (Loratadine 10 Mg Tab) 10 mg PO DAILY [facility] Stop: 05/21/22 08:59 Last Admin: 04/23/22 08:35 Dose: 10 mg Morphine Sulfate (Morphine Sulfate 4 Mg/Ml 1 Ml Carp\Vial) 2 mg IV Q6H PRN PRN Reason: Pain, severe, rating 8,9,10 Stop: 05/04/22 18:06 Last Admin: 04/22/22 10:04 Dose: 2 mg Multivitamins (Multivitamin Tab) 1 tab PO DAILY [facility] Stop: 05/21/22 08:59 Last Admin: 04/23/22 08:35 Dose: 1 tab Ondansetron HCl (Ondansetron Inj 2 Mg/Ml 2 Ml Vial) 4 mg IV Q4H PRN PRN Reason: Nausea And Vomiting Stop: 05/20/22 18:06 Oxycodone HCl (Oxycodone Hcl Ir 5 Mg Tab (Immediate Release)) 5 mg PO Q6H PRN PRN Reason: moderate pain, rating 5,6,7 Stop: 05/04/22 18:06 Last Admin: 04/22/22 05:38 Dose: 5 mg Polyethylene Glycol (Polyethylene (Miralax) 17 Gm Pack) 17 gm PO DAILY [facility] Stop: 05/21/22 08:59 Last Admin: 04/23/22 08:38 Dose: 17 gm (1) Trimalleolar fracture of left ankle Encounter type: initial encounter Fracture type: closed Qualified Code(s): S82.852A - Displaced trimalleolar fracture of left lower leg, initial encounter for closed fracture (2) HTN (hypertension) Hypertension type: unspecified Qualified Code(s): I10 - Essential (primary) hypertension
[2022-04-23] MEDS: GABAPENTIN 100 MG CAP PO SCH (20:05)
[2022-04-24] MEDS: HEPARIN SOD 5,000 UNIT/0.5 ML VIAL SQ SCH ×2 (05:38→12:48)
[2022-04-24] MEDS: LEVOTHYROXINE SODIUM 50 MCG TABLET PO SCH (05:38)
[2022-04-24] MEDS: FLUTICASONE FUROATE 100MCG 14 PUFFS/INHALER INH SCH (07:38)
[2022-04-24] MEDS: bisacodyL 5 MG TABEC PO SCH (07:39)
[2022-04-24] MEDS: POLYETHYLENE (MIRALAX) 17 GM PACK PO SCH (07:39)
[2022-04-24] MEDS: ACETAMINOPHEN 500 MG TAB PO SCH ×3 (07:39→20:20)
[2022-04-24] MEDS: MULTIVITAMIN TAB PO SCH (07:40)
[2022-04-24] MEDS: ASPIRIN 81 MG ECTAB PO SCH ×2 (07:40→20:20)
[2022-04-24] MEDS: ATORVASTATIN 10 MG TAB PO SCH (07:40)
[2022-04-24] MEDS: LORATADINE 10 MG TAB PO SCH (07:40)
[2022-04-24] MEDS ORDERED: bisacodyL 5 MG TABEC PO ONE (08:24)
--- NOTE | 2022-04-24 08:50 | Orthopedic Progress Note ---
Date of Service April 24, 2022 Assessment & Plan (1) Trimalleolar fracture of left ankle: Plan: POD #4 s/p ORIF Left ankle fracture, doing as well as expected. Resume diet. NWB LLE with walker or kneeling scooter. OOB to chair. Continue pain control. DVT prophylaxis: TEDs 3 weeks, foot pumps while in hospital, ASA 81 mg BID for 4 weeks. PT/OT. Anticipate D/C to [facility] tomorrow 04/25/22 if authorization is approved. Continue care per primary service. F/U in Dr. Stearns's office in 2 weeks for staple removal. Ok to d/c from ortho standpoint once medically stable. Present on Admission?: Yes Admission and Anticipated Discharge Date Admission Date: April 20, 2022 Subjective Pt was seen bedside this am at approximately 8:35. She is POD #4 s/p a ORIF left trimalleolar fracture. She is alert and oriented x3. She is in good spirits. She states she has mild pain that 2/10 in the left ankle. She states she feels the pain medication is managing her pain. She denies any paresthesia in her toes or foot. She denies any fever, chills, CP, SOB or calf pain. Review of Systems Review of Systems: Please refer to H&P Physical Exam Physical Exam: General: Alert and oriented x3 answers questions appropriately Musculoskeletal: LLE has splint on toes are exposed. min edema in foot, normal color and temperature. DP 2+. Able to wiggle toes and flex/extend knee. LLE is NVI Results & Data ([facility]) Vital Signs (Past 12 Hours) Vital Signs Temp Pulse Pulse Resp BP BP Pulse Ox 04/24/22 07:23 37.1 C 75 18 125/83 94 04/24/22 07:17 72 04/23/22 22:00 75 04/24/22 03:14 37 C 72 18 119/76 95 04/23/22 23:08 37.2 C 73 16 117/73 93 O2 Del Method 04/24/22 07:23 Room Air 04/24/22 07:17 04/23/22 22:00 04/24/22 03:14 Room Air 04/23/22 23:08 Room Air (1) Trimalleolar fracture of left ankle Encounter type: initial encounter Fracture type: closed Qualified Code(s): S82.852A - Displaced trimalleolar fracture of left lower leg, initial encounter for closed fracture
[2022-04-24] MEDS: PSYLLIUM or GUAR GUM FIBER POWDER PACKET PO SCH (08:59)
[2022-04-24] MEDS ORDERED: bisacodyL 10 MG SUPP PR STA (11:13)
--- NOTE | 2022-04-24 13:04 | Hospitalist Progress Note ---
Date of Service April 24, 2022 Assessment & Plan (1) Fall: Plan: - sustained from fall on ice 04/20/2022 - s/p fracture of left ankle - no s/p OR with ortho 04/20/2022 - Aspirin 81mg BID for 4 weeks per Ortho - PT/OT - reevaluated and recommend home with home PT and RW/kneeling scooter (2) Trimalleolar fracture of left ankle: Plan: - Admit to med surg with tele - Ortho consulted - s/p OR with ortho 04/20/2022 - Preop Ancef - Pain control with Tylenol [id number], oxycodone 5 mg as needed, IV morphine for breakthrough pain - Bowel regimen with MiraLAX and Dulcolax ordered - PT/OT consults - home with home PT, RW/kneeling scooter (3) SSS (sick sinus syndrome): Plan: - s/p PPM 10/2020 (4) HTN (hypertension): Plan: - normotensive at this time - can restart home medications tomorrow 04/22/2022 as tolerated - if SBP >160 throughout the day, can restart home meds today (5) HLD (hyperlipidemia): Plan: - Continue on baby aspirin, hold Lasix and losartan for now with BP being 118/63 - Can resume per the day team - Cont statin therapy HS - EKG reviewed showing atrial paced rhythm, no acute changes (6) Prediabetes: Plan: - A1c pending - glucose is 112 on admission - Pt is not on any home medications - Diet and exercise to be encouraged post-op - monitor BG for now (7) Stage 3b chronic kidney disease (CKD): Plan: - Holding losartan and lasix as above, Cr. is currently 1.08, BUN 25 on admission - Cr 0.9 today - restart losaratan tomorrow 04/22/2022 unless persistently hypertensive today - monitor for now - encourage PO intake - tolerating well (8) Hypothyroidism: Plan: - Cont levothyroxine BB Plan DVT ppx: heparin SC Code Status: Full Code Dispo: telemetry Brent Cantrell MD [facility] Medicine Admission and Anticipated Discharge Date Admission Date: April 20, 2022 Subjective Patient with h/o SSS s/p PPM 10/2020, HTN, HLD, HFpEF, CKD, hypothyroidism presented with left ankle fracture after fall on ice 04/20/2022. Patient is s/p OR with ortho 04/20/2022. PT recommends inpatient rehab, insurance closed until Sunday, patient will be here unnecessarily due to insurance issues until Sunday04/25/2022. Patient feels well today, no complaints. had some vomiting this morning but has not had BM for a few days. Denies pain in left ankle. Denies chest pain, shortness of breath, n/v/d, abdominal pain, dysuria. Tolerating diet well. Review of Systems Review of Systems: All systems reviewed & are unremarkable except as noted in Subjective Physical Exam Physical Exam: General: AAOx3, N AD, + Obese with B TN of 43.1 Head: N ormocephalic, atra umatic ENT: PERRL, EOMI, no pharynge al exudate, mucous membranes moist C hest: Clear to aus cultation, on room air,no adventiti ous breath sounds Cardiac: Regular r ate and rhythm, no murmur, no JVD, good capillary ref ill Abdominal: NAB S x 4 quadrants, s oft, nondistended, nontender to palp ation, no rebound or guarding Extrem ities: Left leg se t and wrapped, oth erwise normal insp ection, no periphe ral edema or eryth maddie, calfs nontend er to palpation Ps ych: Normal mood a nd affect Neuro: A AO x 3, strength i ntact bilaterally and rated 5/5, no motor deficits, sp eech is clear, no peripheral sensory deficits Results & Data Results & Data ([facility]) Vital Signs (Past 12 Hours) Vital Signs Temp Pulse Pulse Resp BP BP Pulse Ox 04/24/22 11:00 36.7 C 79 18 139/64 97 04/24/22 07:23 37.1 C 75 18 125/83 94 04/24/22 07:17 72 04/24/22 03:14 37 C 72 18 119/76 95 O2 Del Method 04/24/22 11:00 Room Air 04/24/22 07:23 Room Air 04/24/22 07:17 04/24/22 03:14 Room Air Diagnostic Findings Laboratory Results WBC 9.08 K/ul (4.8-10.8) 04/21/22 07:45 RBC 3.93 M/uL (3.93-5.22) 04/21/22 07:45 Hgb 12.1 g/dl (12.0-16.0) 04/21/22 07:45 Hct 36.8 % (34.1-44.9) 04/21/22 07:45 MCV 93.6 fL (80.0-100.0) 04/21/22 07:45 MCH 30.8 pg (25.0-34.0) 04/21/22 07:45 MCHC 32.9 g/dL (32.0-36.0) 04/21/22 07:45 RDW Std Deviation 52.5 fL (36.4-46.3) H 04/21/22 07:45 RDW Coeff of Mino 15.1 % (11.5-14.5) H 04/21/22 07:45 Plt Count 150 K/uL (130-400) 04/21/22 07:45 MPV 9.0 fL (9.4-12.3) L 04/21/22 07:45 Immature Gran % (Auto) 0.2 % 04/20/22 10:07 Neut % (Auto) 70.6 % 04/20/22 10:07 Lymph % (Auto) 18.6 % 04/20/22 10:07 [place] % (Auto) 7.8 % 04/20/22 10:07 Eos % (Auto) 2.4 % 04/20/22 10:07 Baso % (Auto) 0.4 % 04/20/22 10:07 Neut # (Auto) 3.81 K/uL (1.4-6.5) 04/20/22 10:07 Lymph # (Auto) 1.00 K/uL (1.2-3.4) L 04/20/22 10:07 [place] # (Auto) 0.42 K/uL (0.24-0.82) 04/20/22 10:07 Eos # (Auto) 0.13 K/uL (0-0.50) 04/20/22 10:07 Baso # (Auto) 0.02 K/uL (0-0.2) 04/20/22 10:07 Immature Gran # (Auto) 0.01 K/uL (0.00-0.02) 04/20/22 10:07 Sodium 143 mmol/L (136-145) 04/21/22 07:45 Potassium 4.0 mmol/L (3.5-5.1) 04/21/22 07:45 Chloride 108 mmol/L (98-107) H 04/21/22 07:45 Carbon Dioxide 28 mmol/L (21-32) 04/21/22 07:45 Anion Gap 7 (3-11) 04/21/22 07:45 BUN 17 mg/dl (6-23) 04/21/22 07:45 Creatinine 0.90 mg/dl (0.6-1.2) 04/21/22 07:45 Est Cr Clr Drug Dosing 70.0 ml/min 04/21/22 07:45 Est GFR ( Amer) 75.1 ml/min 04/21/22 07:45 Est GFR (Non-Af Amer) 64.8 ml/min 04/21/22 07:45 BUN/Creatinine Ratio 18.9 (10-20) 04/21/22 07:45 Glucose 113 mg/dl (70-99(Fasting)) H 04/21/22 07:45 Estimat Average Glucose 120 mg/dl 04/21/22 07:45 Hemoglobin A1c 5.8 % (4.5-5.6) H 04/21/22 07:45 Calcium 8.8 mg/dl (8.5-10.1) 04/21/22 07:45 Total Bilirubin 0.4 mg/dl (0.2-1.0) 04/20/22 10:07 AST 25 U/L (13-39) 04/20/22 10:07 ALT 21 U/L (7-52) 04/20/22 10:07 Alkaline Phosphatase 74 U/L (34-104) 04/20/22 10:07 Total Protein 7.4 gm/dl (6.0-8.3) 04/20/22 10:07 Albumin 4.4 gm/dl (3.4-5.0) 04/20/22 10:07 Globulin 3.0 gm/dl (2.5-4.0) 04/20/22 10:07 Albumin/Globulin Ratio 1.5 (0.9-2) 04/20/22 10:07 Urine Color Yellow 04/20/22 10:23 Urine Appearance Clear (Clear) 04/20/22 10:23 Urine pH 5.0 (4.5-7.5) 04/20/22 10:23 Ur Specific [place] 1.007 (1.000-1.030) 04/20/22 10:23 Urine Protein Negative (Negative) 04/20/22 10:23 Urine Glucose (UA) Negative (Negative) 04/20/22 10:23 Urine Ketones Negative (Negative) 04/20/22 10:23 Urine Blood Negative (Negative) 04/20/22 10:23 Urine Nitrite Negative (Negative) 04/20/22 10:23 Urine Bilirubin Negative (Negative) 04/20/22 10:23 Urine Urobilinogen Negative (Negative) 04/20/22 10:23 Ur Leukocyte Esterase Negative (Negative) 04/20/22 10:23 SARS-CoV-2, RNA, NAAT NEGATIVE (NEGATIVE) 04/20/22 10:09 Impressions Chest X-Ray 04/20/22 11:58 XR chest 1V portable HISTORY: Left ankle fracture. preop COMPARISON: None. FINDINGS: There are low lung volumes. A few small left basilar linear densities favor subsegmental atelectasis or scarring. Otherwise, the lungs are clear. No evidence for pulmonary edema. There is a small hiatus hernia. Prior cholecystectomy. Left-sided dual-chamber pacemaker. No pleural effusions. No pneumothorax. IMPRESSION: A few small left basilar linear densities favoring subsegmental atelectasis or scarring. Otherwise, no acute process within the chest. ACT 112: Negative or not required by law. Electronically signed by: Man Alvarenga M.D. 04/20/2022 12:34 PM Ankle X-Ray 04/20/22 12:50 FL ankle LT min 3V RTN CLINICAL HISTORY: LT ANKLE ORIF COMPARISON STUDY: Left ankle radiographs performed earlier today. FLUOROSCOPY TIME: 29.3 seconds. FLUOROSCOPIC IMAGES: 3 FINDINGS: Fluoroscopy was provided during open reduction and internal fixation of the fracture/dislocation of the left ankle. Fracture alignment appears anatomic. Plate and screw fixation of the fibular fracture is noted with screw fixation of the medial malleolar fracture. There are no unexpected radiopaque foreign bodies. IMPRESSION: Fluoroscopy provided during left ankle open reduction and internal fixation. ACT 112: Negative or not required by law. Electronically signed by: Charan Cruz M.D. 04/20/2022 3:40 PM Medications Administered Current Inpatient Medications Acetaminophen (Acetaminophen 500 Mg Tab) 1,000 mg PO TID [facility] Stop: 05/20/22 18:59 Last Admin: 04/24/22 12:48 Dose: 1,000 mg Albuterol (Albuterol Hfa 8 Gm Inhaler) 2 puffs INH Q4 PRN PRN Reason: Shortness Of Breath Or Wheezin Stop: 05/20/22 18:06 Aspirin (Aspirin 81 Mg Ectab) 81 mg PO DAILY [facility] Stop: 05/21/22 08:59 Last Admin: 04/24/22 07:40 Dose: 81 mg Atorvastatin Calcium (Atorvastatin 10 Mg Tab) 10 mg PO QAM [facility] Stop: 05/21/22 08:59 Last Admin: 04/24/22 07:40 Dose: 10 mg Bisacodyl (Bisacodyl 5 Mg Tabec) 5 mg PO DAILY [facility] Stop: 05/21/22 08:59 Last Admin: 04/24/22 07:39 Dose: 5 mg Fluticasone Furoate (Fluticasone Furoate 100mcg 14 Puffs/Inhaler) 1 puffs INH DAILY [facility] Stop: 05/21/22 08:59 Last Admin: 04/24/22 07:38 Dose: 1 puffs Gabapentin (Gabapentin 100 Mg Cap) 100 mg PO HS [facility] Stop: 05/20/22 20:59 Last Admin: 04/23/22 20:05 Dose: 100 mg Guaifenesin/Codeine Phosphate (Guaifenesin/Codeine 200mg/20mg 10ml Udc) 10 ml PO Q6H PRN PRN Reason: Cough Stop: 05/20/22 21:11 Heparin Sodium (Porcine) (Heparin Sod 5,000 Unit/0.5 Ml Vial) 5,000 units SQ Q8 [facility] Stop: 05/21/22 13:59 Last Admin: 04/24/22 12:48 Dose: 5,000 units Levothyroxine Sodium (Levothyroxine Sodium 50 Mcg Tablet) 50 mcg PO DAILYBB [facility] Stop: 05/21/22 06:29 Last Admin: 04/24/22 05:38 Dose: 50 mcg Loratadine (Loratadine 10 Mg Tab) 10 mg PO DAILY [facility] Stop: 05/21/22 08:59 Last Admin: 04/24/22 07:40 Dose: 10 mg Multivitamins (Multivitamin Tab) 1 tab PO DAILY [facility] Stop: 05/21/22 08:59 Last Admin: 04/24/22 07:40 Dose: 1 tab Ondansetron HCl (Ondansetron Inj 2 Mg/Ml 2 Ml Vial) 4 mg IV Q4H PRN PRN Reason: Nausea And Vomiting Stop: 05/20/22 18:06 Last Admin: 04/24/22 08:18 Dose: 4 mg Oxycodone HCl (Oxycodone Hcl Ir 5 Mg Tab (Immediate Release)) 5 mg PO Q6H PRN PRN Reason: moderate pain, rating 5,6,7 Stop: 05/04/22 18:06 Last Admin: 04/22/22 05:38 Dose: 5 mg Polyethylene Glycol (Polyethylene (Miralax) 17 Gm Pack) 17 gm PO DAILY [facility] Stop: 05/21/22 08:59 Last Admin: 04/24/22 07:39 Dose: 17 gm Psyllium Hydrophilic Mucilloid (Psyllium Or Guar Gum Fiber Powder Packet) 1 pkt PO QAM [facility] Stop: 05/24/22 08:59 Last Admin: 04/24/22 08:59 Dose: 1 pkt (1) Trimalleolar fracture of left ankle Encounter type: initial encounter Fracture type: closed Qualified Code(s): S82.852A - Displaced trimalleolar fracture of left lower leg, initial encounter for closed fracture (2) HTN (hypertension) Hypertension type: unspecified Qualified Code(s): I10 - Essential (primary) hypertension
[2022-04-24] MEDS: GABAPENTIN 100 MG CAP PO SCH (20:21)
[2022-04-25] MEDS: LEVOTHYROXINE SODIUM 50 MCG TABLET PO SCH (05:39)
[2022-04-25] MEDS: LORATADINE 10 MG TAB PO SCH (08:14)
[2022-04-25] MEDS: ACETAMINOPHEN 500 MG TAB PO SCH ×2 (08:14→13:14)
[2022-04-25] MEDS: ATORVASTATIN 10 MG TAB PO SCH (08:15)
[2022-04-25] MEDS: bisacodyL 5 MG TABEC PO SCH (08:15)
[2022-04-25] MEDS: MULTIVITAMIN TAB PO SCH (08:16)
[2022-04-25] MEDS: FLUTICASONE FUROATE 100MCG 14 PUFFS/INHALER INH SCH (08:16)
[2022-04-25] MEDS: POLYETHYLENE (MIRALAX) 17 GM PACK PO SCH (08:16)
[2022-04-25] MEDS: PSYLLIUM or GUAR GUM FIBER POWDER PACKET PO SCH (08:17)
[2022-04-25] MEDS: ASPIRIN 81 MG ECTAB PO SCH (09:12)
[2022-04-25 11:57] VITALS: BP 129/81; TEMP 98.4; O2SAT 95
--- NOTE | 2022-04-25 12:22 | Discharge Summary ---
Date of Service April 25, 2022 Admission HPI Per Admitting Provider This is a 71 yo F with PMhx of SSS status post pacemaker insertion in October 2020, HTN, HLD, diastolic dysfunction, prediabetes, CKD stage IIIb, and hypothyroidism who slipped and fell on ice earlier today. Patient's is at bedside . This morning his stepped outside of her vehicle onto some ice, slipped and fell on top of her ankle. This was immediately followed by severe pain. The patient is currently sedated and unconscious therefore unable to obtain history or ROS from her. Patient has underwent attempt to reduce/that the ankle however was unable to be done in the ER. ER physician had difficulty finding palpable pulse in the left foot, bedside Doppler could not identify dorsalis pedis pulse, and orthopedic consult was placed urgently and they are planning to take the patient to the OR this afternoon. Admission Exam Per Admitting Provider General: + sedated, no apparent distress, + Obese with BMI of 43.1 Head: Normocephalic, atraumatic ENT: PERRL, EOMI, no pharyngeal exudate, mucous membranes moist Chest: Clear to auscultation, on room air with nasal oximetry monitor in place, no adventitious breath sounds Cardiac: Regular rate and rhythm, no murmur, no JVD, good capillary refill Abdominal: NABS x 4 quadrants, soft, nondistended, nontender to palpation, no rebound or guarding Extremities: Left leg set and wrapped, otherwise normal inspection, no peripheral edema or erythema, calfs nontender to palpation Psych: Normal mood and affect Neuro: AAO x 3, strength intact bilaterally and rated 5/5, no motor deficits, speech is clear, no peripheral sensory deficits Principal Diagnosis left ankle fracture s/p surgical repair Discharge Exam General: AAOx3, NAD, + Obese with BMI of 43.1 Head: Normocephalic, atraumatic ENT: PERRL, EOMI, no pharyngeal exudate, mucous membranes moist Chest: Clear to auscultation, on room air,no adventitious breath sounds Cardiac: Regular rate and rhythm, no murmur, no JVD, good capillary refill Abdominal: NABS x 4 quadrants, soft, nondistended, nontender to palpation, no rebound or guarding Extremities: Left leg set and wrapped, otherwise normal inspection, no peripheral edema or erythema, calfs nontender to palpation Psych: Normal mood and affect Neuro: AAO x 3, strength intact bilaterally and rated 5/5, no motor deficits, speech is clear, no peripheral sensory deficits Discharge Data Allergies Allergy/AdvReac Type Severity Reaction Status Date / Time cephalexin [From Keflex] Allergy Hives Verified 04/20/22 11:44 Penicillins Allergy hives Verified 04/20/22 11:43 Consultations 04/20/22 11:44 ED Decision to Admit Stat 04/20/22 12:48 Consult Orthopedic Surgery Routine Procedures Performed Operation Date: 04/20/22 12:10 Actual Procedures p Left Open Reduction Internal Fixation Ankle bimalleolar (Left) - Anjumti Stearns MD Ordered Studies 04/20/22 12:50 FL ankle LT min 3V RTN Routine Hospital Course (1) Fall: - sustained from fall on ice 04/20/2022 - s/p fracture of left ankle - no s/p OR with ortho 04/20/2022 - Aspirin 81mg BID for 4 weeks per Ortho - PT/OT - reevaluated and recommend home with home PT and RW - discharge home with home PT, rolling walking, toilet seat riser - follow up with surgery in 2 weeks (2) Trimalleolar fracture of left ankle: - Admit to med surg with tele - Ortho consulted - s/p OR with ortho 04/20/2022 - Preop Ancef - Pain control with Tylenol [id number], oxycodone 5 mg as needed, IV morphine for breakthrough pain - Bowel regimen with MiraLAX and Dulcolax ordered - PT/OT consults - home with home PT, RW (3) SSS (sick sinus syndrome): - s/p PPM 10/2020 (4) HTN (hypertension): - normotensive at this time - can restart home medications tomorrow 04/22/2022 as tolerated - if SBP >160 throughout the day, can restart home meds today (5) HLD (hyperlipidemia): - Continue on baby aspirin, hold Lasix and losartan for now with BP being 118/63 - Can resume per the day team - Cont statin therapy HS - EKG reviewed showing atrial paced rhythm, no acute changes (6) Prediabetes: - A1c pending - glucose is 112 on admission - Pt is not on any home medications - Diet and exercise to be encouraged post-op - monitor BG for now (7) Stage 3b chronic kidney disease (CKD): - Holding losartan and lasix as above, Cr. is currently 1.08, BUN 25 on admissi on - Cr 0.9 today - restart tiffanytan tomorrow 04/22/2022 unless persistently hypertensive today - monitor for now - encourage PO intake - tolerating well (8) Hypothyroidism: - Cont levothyroxine BB Plan DVT ppx: heparin SC Code Status: Full Code Dispo: telemetry Brent Cantrell MD [facility] Total Time Total Time Spent Total Time Spent (In Minutes): 25 Total Time Includes: Examination of the Patient, Discharge Planning and Medication Reconciliation Discharge Plan Discharge Items Patient Disposition: Home - Self-Care Reason For Visit: FALL, ANKLE FX Discharge Diagnosis: left bimalleolar ankle fracture Activity: Resume your previous activity Non-emergency contact: Primary Care Provider and Surgeon Call non-emergency contact if: you have any medication questions and your symptoms worsen Follow-up/Referrals: Anjum Stearns MD [Physician] - (as instructed, call [phone] to schedule or confirm appointment.) Migule Miranda MD [Primary Care Provider] - Cris Pereira PA-C [Physician Clinical Outcomes Manager] - 05/05/22 10:45 am Diet: Heart Healthy Dylan Attending Provider Instructions: You were admitted with left ankle fracture after a fall. It was surgically r epaired by orthopedic surgery. You will go home with home PT and should take Aspirin 81mg 2x/day for 4 week. Follow up with orthopedic surgery in the office in 2 weeks - appointment made. 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 Keep splint on left leg at all times. Keep it clean and dry. Cover when bathing. Okay to rewrap Erlin bandage around left splint if necessary. Use walker or crutches to assist with ambulation at all times. Take Aspirin 81mg twice daily with food to prevent blood clots. Ice to left ankle as frequently as needed to control pain and swelling. Do not apply ice directly to your skin. Elevate left lower extremity above your heart to relieve pain and swelling. Allowed to wiggle toes and do full range of motion of your left knee as tolerated. Pain medication as prescribed. You may alternate your pain medication with Tylenol and/or ibuprofen as needed for pain. Do not take more than 3000 mg of Tylenol per day. Follow-up as scheduled with Dr. Stearns. We have an appointment scheduled next week to transition you to a boot. Call [phone] with any questions or concerns such as increased pain, swelling, drainage or need to reschedule appointment. Pending Studies at Discharge: No Stand-Alone Forms: [facility], Smoking Cessation Medications and DC Order Prescriptions: New bisacodyl [Gentle Laxative (bisacodyl)] 5 mg Tablet,Delayed Release (Dr/Ec) 5 mg PO DAILY PRN (Reason: constipation) Qty: 20 0RF polyethylene glycol 3350 [Miralax] 17 gram Powder In Packet 17 g PO DAILY PRN (Reason: constipation) Qty: 14 0RF aspirin 81 mg Tablet,Delayed Release (Dr/Ec) 81 mg PO BID 28 Days Qty: 56 0RF Continued atorvastatin 10 mg tablet 10 mg PO QAM levothyroxine 50 mcg tablet 50 mcg PO DAILY furosemide 20 mg tablet 20 mg PO Q OTHER DAY gabapentin 100 mg capsule 100 mg PO HS losartan 100 mg tablet 100 mg PO DAILY Arnuity Ellipta 100 mcg/actuation blister with device 1 inh INHALATION DAILY promethazine-DM 6.25-15 mg/5 mL Syrup 5 ml PO DIRECTED PRN (Reason: Cough) albuterol sulfate 90 mcg/actuation HFA aerosol inhaler 2 puff INHALATION Q4 PRN (Reason: Shortness Of Breath Or Wheezing) multivitamin Tablet 1 tab PO DAILY acetaminophen [Tylenol Extra Strength] 500 mg Tablet 1,000 mg PO Q8 PRN (Reason: Pain) loratadine [Claritin] 10 mg Tablet 10 mg PO DAILY Discontinued aspirin [Aspir-Low] 81 mg Tablet,Delayed Release (Dr/Ec) 81 mg PO DAILY Discharge Orders: Discharge Order (Routine); Ordered 04/25/22 Ordered By: Brent Cantrell Admission Data Admit Date/Time: 04/20/22 11:45 Attending Provider: Brent Cantrell Admit Provider: Morenita Lianres Primary Care Provider: Miguel Miranda Other Providers: Morenita Linares ; Anjum Stearns ; [facility] ; Raven Carvalho [facility] ; [place] Other Interventions: Discharge Summary Assessment (RN) Last Done: 04/25/22 12:56
[2022-04-25 12:57] VITALS: PULSE 90
== END 2022-04-25 14:46 | disposition home or self-care (01) | DRG 493 ==
LOC: ED 09:34 → SUATTDRO 11:45 → PACUINP 11:45 → OR 12:49 → 2N 17:54